=== PATIENT | female | born 1950 | race Caucasian/White ===

== ENCOUNTER → 2019-05-23 | Outpatient (CLI) | payer MEDICARE, OTHER ==
[~2019-05-23] MED LIST: ALPRAZOLAM1 MG PO; AMLODIPINE BESYL5 MG PO; ASPIR 8181 MG PO; ATORVASTATIN CA20 MG PO; FENOFIBRATE145 MG PO; GABAPENTIN300 MG PO; LISINOPRIL-HCT1 EACH PO; LOVAZA1 GM PO; NOVOLOG100 UNITS1 SC; OMEPRAZOLE40 MG PO; TOUJEO SOL300 UNIT/1 SC; TRULICITY1.5 MG/0.5 SC; ZOLOFT50 MG PO
[2019-05-23 11:54] LABS: BASOPHILS % 0.8 % (0.0-1.0); EOSINOPHILS # (AUTO) 0.1 (0.0-0.4); EOSINOPHILS % 2.7 % (0.0-6.0); HEMOGLOBIN 10.6 g/dL (12.0-16.0); LYMPHOCYTES # (AUTO) 1.3 (1.0-3.2); LYMPHOCYTES % 27.1 % (18.0-39.1); MEAN CORPUSCULAR HEMOGLOBIN 30.9 pg (28-32); MEAN CORPUSCULAR HGB CONC 32.1 g/dL (31-35); MEAN CORPUSCULAR VOLUME 96.2 fL (81-99); MONOCYTES # (AUTO) 0.4 (0.2-0.8); MONOCYTES % 7.5 % (4.4-11.3); NEUTROPHILS % 61.7 % (38.7-80.0); PLATELET COUNT 208 x10e3/uL (140-360); RED BLOOD COUNT 3.43 x10e6/uL (3.6-5.1); RED CELL DISTRIBUTION WIDTH 12.9 % (11.7-14.4)
[2019-05-23 12:12] LABS: ANION GAP 13.2 mmol/L (8-16); CALCIUM 9.8 mg/dL (8.4-10.2); CREATININE, SERUM 1.14 mg/dL (0.57-1.11); POTASSIUM 4.2 mmol/L (3.5-5.1)
--- NOTE | 2019-05-23 12:50 | Diagnostic Imaging Report ---
EXAMINATION: CHEST 2 VIEWS INDICATION: Pre-operative COMPARISON: None FINDINGS: LINES/TUBES:None LUNGS:The lungs are well-inflated. No focal consolidation or pulmonary edema. PLEURA:No pleural effusion or pneumothorax. MEDIASTINUM:The cardiomediastinal silhouette appears normal in size and shape. BONES/SOFT TISSUES:No acute osseous injury. ABDOMEN:No free air under the diaphragm. IMPRESSION: No focal pneumonia or pulmonary edema. Signed by: Teddy Stewart MD on 05/23/2019 12:47 PM
== END ==
LOC: DX 10:36 → EDSTATUS 05-26 07:00
PROVIDERS: ATTEND Plastic Surgery
DX: Z01.818 Encounter for other preprocedural examination (principal); M65.321 Trigger finger, right index finger
CPT/HCPCS: 36415; 71046; 80048; 85025; 93005

== ENCOUNTER → 2019-06-16 | Day surgery (SDC) | payer MEDICARE, OTHER ==
[~2019-06-16] MED LIST changes: +ACETAMINOPHEN/CODEINE 300MG - 30MG TAB ONE; +BUPIVACAINE HCL 0.5% INJ 30 ML VIAL INJ ONE; +CEFAZOLIN SOD 1 GM/NS 50ML 50 ML IV ONE; +FENTANYL CITRATE/PF 100MCG/2 ML INJ ONE; +LIDOCAINE HCL 2% LOCAL INJ 5 ML SDV VIAL INJ ONE; +MUPIROCIN 2% OINT 22 GM TUBE ONE; +ONDANSETRON HCL INJ 2MG/ML 2ML 2 MG/ML VIAL ONE; +PROPOFOL IV EMULSION 10 MG/ML 20 ML VIAL ONE; +SEVOFLURANE INHAL SOLN 250 ML PEN BTL ONE
--- OUTSIDE RECORDS SUMMARY | 2019-06-16 05:31 | XMS REPORT | Summary of Care ---
Author Author [facility] [[email or web address]] - Health Organization [facility] [[email or web address]] - Health Address Unknown Phone Unavailable Care Team Providers Care Bait Maker Name Role Phone Robin Garcia MD PCP Reason for Visit * Reason Comments Refill Request medication refills Encounter Details Care Team Description Date Type Department Robin Garcia MD [address] [place] [id number] Essential hypertension (Primary Dx); Anxiety; Neuropathy 09/22/2018 Office Visit [address] [phone] Allergies Comments Active Allergy Reactions Severity Noted Date Levofloxacin Unknown - See 02/02/2015 comments Hydrocodone-Acetaminophen Nausea and/or 02/02/2015 Vomiting documented as of this encounter (statuses as of 09/22/2018) Medications End Date Status Medication Sig Dispensed Refills Start Date Active aspirin 81 mg chewable Take 81 mg by 0 tablet mouth daily. Active methocarbamol 500 mg Take 500 mg 0 tablet by mouth 4 (four) times daily. Active blood sugar diagnostic Use as 300 Strip 3 (ACCU-CHEK GUIDE) directed. E 8 stripIndications: 11.9. Three Uncontrolled type 2 times daily diabetes with renal manifestation Active Lancets (ACCU-CHEK Use as 300 Each 3 FASTCLIX) directed. E 8 MiscIndications: 11.9. Three Uncontrolled type 2 times daily diabetes with renal manifestation Active Lancing Device with Use as 300 Kit 3 Lancets (ACCU-CHEK directed. 8 FASTCLIX) KitIndications: Three times Uncontrolled type 2 daily. E 11.9 diabetes with renal manifestation Active dulaglutide (TRULICITY) inject 1.5 mg 12 Syringe 4 1.5 mg/0.5 mL under the 9 PnIjIndications: skin weekly. Uncontrolled type 2 diabetes with renal manifestation Active Fenofibrate 160 mg Take 1 tablet 90 tablet 3 tabletIndications: by mouth 9 Hypertriglyceridemia every morning. Active atorvastatin 80 mg Take 1 tablet 90 tablet 4 tabletIndications: by mouth at 9 Dyslipidemia, Essential bedtime. hypertension, CKD (chronic kidney disease) stage 3, GFR 30-59 ml/min Active LOVAZA, rijgw-4-quiy Take 2 360 capsule 3 ethyl esters, 1 gram capsules by 9 capsuleIndications: mouth 2 (two) Hypertriglyceridemia times daily before breakfast and dinner. Active amLODIPine 5 mg TAKE 1 TABLET 90 tablet 4 tabletIndications: EVERY DAY 9 Essential hypertension, CKD (chronic kidney disease) stage 3, GFR 30-59 ml/min, Bilateral carotid bruits, Cardiac murmur, Vertebral artery stenosis, unspecified laterality Active omeprazole 40 mg Take 1 90 capsule 3 capsuleIndications: capsule by 9 Gastroesophageal reflux mouth daily. disease without esophagitis Active insulin aspart U-100 inject 15-30 81 mL 1 (NOVOLOG FLEXPEN U-100 Units under 9 INSULIN) 100 unit/mL the skin 3 injectionIndications: (three) times Uncontrolled type 2 daily before diabetes with renal meals. manifestation Active lisinopril-hydrochlorothi Take 1 tablet 0 azide 20-12.5 mg per by mouth tablet daily. Active insulin glargine U-300 inject 60 6 mL 2 conc (TOUJEO MAX U-300 Units under 9 SOLOSTAR) 300 unit/mL (3 the skin mL) InPn daily. Active Insulin [place], Use 5X daily. 500 Each 4 Disposable, (SANDER PEN Dx Code 9 NEEDLE) 32 gauge x 5/32" E11.49 NdleIndications: Uncontrolled type 2 diabetes with renal manifestation Active ALPRAZolam 1 mg Take 1 tablet 30 tablet 5 tabletIndications: by mouth at 9 Anxiety bedtime. Active SERTraline 100 mg TAKE 1 TABLET 90 tablet 4 tabletIndications: EVERY DAY 9 Anxiety Active gabapentin 300 mg TAKE 1 270 capsule 4 capsuleIndications: CAPSULE BY 9 Neuropathy MOUTH LEGS THREE TIMES DAILY NEEDED FOR PAIN 09/22/2018 Discontinued ALPRAZolam 1 mg Take 1 tablet 30 tablet 5 tabletIndications: by mouth at 9 Anxiety bedtime. 09/22/2018 Discontinued SERTraline 100 mg TAKE 1 TABLET 90 tablet 4 tabletIndications: EVERY DAY 9 Anxiety 09/22/2018 Discontinued GABAPENTIN 300 mg TAKE 1 90 capsule 0 capsuleIndications: CAPSULE BY 9 Neuropathy MOUTH LEGS THREE TIMES DAILY NEEDED FOR PAIN documented as of this encounter (statuses as of 09/22/2018) Active Problems Problem Noted Date Well woman exam 01/28/2018 Adrenal benign tumor, right 12/15/2016 Vertebral artery stenosis 04/25/2016 S/P arterial stent 04/25/2016 Overview: Right vertebral artery for 80% stenosis (04/25/16) Syncope 04/24/2016 Obesity (BMI 30-39.9) 04/22/2016 Dizziness 04/22/2016 Syncope, unspecified syncope type 03/24/2016 Bradycardia 03/24/2016 Cardiac murmur 03/24/2016 Allergic rhinitis due to pollen 08/14/2015 Gastroesophageal reflux disease without esophagitis 02/05/2015 Uncontrolled type 2 diabetes with renal manifestation 12/13/2014 Bilateral carotid bruits 12/13/2014 Hypertriglyceridemia 11/07/2014 CKD (chronic kidney disease) stage 3, GFR 30-59 ml/min 11/07/2014 B12 deficiency 11/07/2014 Essential hypertension 11/03/2014 Central obesity 11/03/2014 Muscle weakness (generalized) 11/03/2014 documented as of this encounter (statuses as of 09/22/2018) Resolved Problems Problem Noted Date Resolved Date Vitamin D deficiency 11/07/2014 06/20/2015 Diabetes mellitus type 2, uncontrolled, without complications 11/03/2014 12/13/2014 Overview: ICD10 Diagnosis Term 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 documented as of this encounter Last Filed Vital Signs Reading Time Taken Comments Vital Sign 154/71 09/22/2018 8:21 AM CDT Blood Pressure 89 09/22/2018 8:21 AM CDT Pulse 36.4 C (97.6 F) 09/22/2018 8:21 AM CDT Temperature 16 09/22/2018 8:21 AM CDT Respiratory Rate - - Oxygen Saturation - - Inhaled Oxygen Concentration 85.7 kg (189 lb) 09/22/2018 8:21 AM CDT Weight 160 cm (5' 3") 09/22/2018 8:21 AM CDT Height 33.48 09/22/2018 8:21 AM CDT Body Mass Index documented in this encounter Progress Notes * Robin Garcia MD - 09/22/2018 8:30 AM CDT CC: follow up hypertension and refills Mary is a 68 year old female Hypertension Chronicity: Chronic Notable CLINICAL QUALITY MANAGER blood pressures: Usually < 140/90 Context: normal sodium, not caffeine, not drug abuse, not herbal remedies, not m edication change, not noncompliance, not OTC medications used and not stress Relieved by: Diuretics, ROCIO inhibitors and Ca channel blockers Associated symptoms: no chest pain, no palpitations, no peripheral edema and no shortness of breath Risk factors: no tobacco use Allergies Allergen Reactions Levaquin [Levofloxacin] Unknown - See comments Lortab [Hydrocodone-Acetaminophen] Nausea and/or Vomiting Current Outpatient Medications Medication Sig Dispense Refill Insulin [place], Disposable, (SANDER PEN NEEDLE) 32 gauge x 5/32" Ndle Use 5X daily. Dx Code E11.49 500 Each 4 insulin glargine U-300 conc (TOUJEO MAX U-300 SOLOSTAR) 300 unit/mL (3 mL) I nPn inject 60 Units under the skin daily. 6 mL 2 GABAPENTIN 300 mg capsule TAKE 1 CAPSULE BY MOUTH LEGS THREE TIMES DAILY NEEDED FOR PAIN 90 capsule 0 lisinopril-hydrochlorothiazide 20-12.5 mg per tablet Take 1 tablet by mouth daily. insulin aspart U-100 (NOVOLOG FLEXPEN U-100 INSULIN) 100 unit/mL injection i nject 15-30 Units under the skin 3 (three) times daily before meals. 81 mL 1 ALPRAZolam 1 mg tablet Take 1 tablet by mouth at bedtime. 30 tablet 5 amLODIPine 5 mg tablet TAKE 1 TABLET EVERY DAY 90 tablet 4 atorvastatin 80 mg tablet Take 1 tablet by mouth at bedtime. 90 tablet 4 dulaglutide (TRULICITY) 1.5 mg/0.5 mL PnIj inject 1.5 mg under the skin week ly. 12 Syringe 4 Fenofibrate 160 mg tablet Take 1 tablet by mouth every morning. 90 tablet 3 LOVAZA, ptzlb-1-pmce ethyl esters, 1 gram capsule Take 2 capsules by mouth 2 (two) times daily before breakfast and dinner. 360 capsule 3 omeprazole 40 mg capsule Take 1 capsule by mouth daily. 90 capsule 3 SERTraline 100 mg tablet TAKE 1 TABLET EVERY DAY 90 tablet 4 blood sugar diagnostic (ACCU-CHEK GUIDE) strip Use as directed. E 11.9. Thre e times daily 300 Strip 3 Lancets (ACCU-CHEK FASTCLIX) Misc Use as directed. E 11.9. Three times daily 300 Each 3 Lancing Device with Lancets (ACCU-CHEK FASTCLIX) Kit Use as directed. Three times daily. E 11.9 300 Kit 3 methocarbamol 500 mg tablet Take 500 mg by mouth 4 (four) times daily. aspirin 81 mg chewable tablet Take 81 mg by mouth daily. No current facility-administered medications for this visit. Past Medical History: Diagnosis Date Allergic rhinitis Depression DM2 (diabetes mellitus, type 2) Dry eye Esophageal reflux HLD (hyperlipidemia) HTN (hypertension) Past Surgical History: Procedure Laterality Date APPENDECTOMY HB PERQ STENT/CHEST VERT ART 04/26/2016 HYSTERECTOMY complete age 54 REMOVAL GALLBLADDER Social History Socioeconomic History Marital status: Spouse name: Not on file Number of children: Not on file Years of education: Not on file Highest education level: Not on file Occupational History Not on file Social Needs Financial resource strain: Not on file Food insecurity: Worry: Not on file Inability: Not on file Transportation needs: Medical: Not on file Non-medical: Not on file Tobacco Use Smoking status: Never Smoker Smokeless tobacco: Never Used Substance and Sexual Activity Alcohol use: No Alcohol/week: 0.0 oz Drug use: No Sexual activity: Yes Partners: Male control/protection: Surgical Lifestyle Physical activity: Days per week: Not on file Minutes per session: Not on file Stress: Not on file Relationships Social connections: Talks on phone: Not on file Gets together: Not on file Attends church service: Not on file Active member of club or organization: Not on file Attends meetings of clubs or organizations: Not on file Relationship status: Not on file Intimate partner violence: Fear of current or ex partner: Not on file Emotionally abused: Not on file Physically abused: Not on file Forced sexual activity: Not on file Other Topics Concern Not on file Social History Narrative Retired in July 2014 Lives with . Family History Problem Relation Age of Onset Diabetes Mother Diabetes Father Heart Brother Review of Systems Respiratory: Negative for shortness of breath. Cardiovascular: Negative for chest pain and palpitations. with stage 4 renal cancer BP (!) 154/71 (BP Location: Left arm, Patient Position: Sitting, BP CUFF SIZE: A dult Medium) | Pulse 89 | Temp 36.4 C (97.6 F) (Tympanic) | Resp 16 | Ht 5' 3" (1.6 m) | Wt 189 lb (85.7 kg) | BMI 33.48 kg/m Physical Exam Constitutional: She is oriented to person, place, and time. She appears well-dev eloped and well-nourished. HENT: Head: Normocephalic and atraumatic. Eyes: Pupils are equal, round, and reactive to light. Conjunctivae are normal. Neck: Normal range of motion. Neck supple. No JVD present. No tracheal deviation present. No thyromegaly present. Cardiovascular: Normal rate, regular rhythm, normal heart sounds and intact dist al pulses. Exam reveals no gallop and no friction rub. No murmur heard. Pulmonary/Chest: Effort normal and breath sounds normal. No respiratory distress . She has no wheezes. She has no rales. She exhibits no tenderness. Abdominal: Soft. Bowel sounds are normal. She exhibits no distension and no mass . There is no tenderness. There is no rebound and no guarding. Musculoskeletal: Normal range of motion. She exhibits no edema or tenderness. Lymphadenopathy: She has no cervical adenopathy. Neurological: She is alert and oriented to person, place, and time. Skin: Skin is warm and dry. Sensory exam of the foot is normal. Monofilament exam with sensation Right: 5/5, Left: 5/5. Lesions absent Ulcers Absent Peripheral pulses present 2+. Diagnosis: 1. Essential hypertension 2. Anxiety ALPRAZolam 1 mg tablet SERTraline 100 mg tablet 3. Neuropathy gabapentin 300 mg capsule Follow up: 6 months Patient Care Team: Robin Garcia MD as PCP - General ([facility]-FAMILY MEDICINE) Plan of care, desired health behaviors, goals,& medication discussed with patient. Education resources & self management tools provided and reviewed with AVS. Patient/guardian/family verbalized understanding & agrees to plan of care. Barriers to care: None Ability to manage care: Good documented in this encounter Plan of Treatment Care Team Description Date Type Specialty Lucas Vieira MD [address] [place] [address] [phone] 01/04/2019 Office Visit Endocrinology Diabetes & Metabolism Relga Seo PA-C [address] [place] [phone] 01/28/2019 Office Visit Obstetrics & Gynecology Edilberto Davila MD [address] [phone] 07/28/2019 Office Visit Cardiology Health Maintenance Due Date Last Done Comments HEPATITIS C (HCV) SCREEN 1950 EYE EXAM 08/08/1959 COLONOSCOPY 08/08/1999 Zoster Recombinant 08/08/1999 Vaccine (SHINGRIX) (1 of 2) Medicare Wellness Visit 2014 Osteoporosis Screening 2014 PNEUMOCOCCAL VACCINES 65+ 2014 (1 of 2 - PCV13) DTaP,Tdap,and Td Vaccines 06/05/2016 06/04/2016 (1 - Tdap) INFLUENZA VACCINE 10/24/2018 MAMMOGRAM 02/02/2019 02/02/2018 HgA1C 03/04/2019 09/01/2018, 06/07/2018, 03/09/2018, Additional history exists FOOT EXAM 06/08/2019 06/07/2018, 06/07/2018, 03/09/2018, Additional history exists CREATININE (SERUM) 09/02/2019 09/01/2018, 07/13/2017, 06/22/2017, Additional history exists LDL-C 09/02/2019 09/01/2018, 03/09/2018, 05/05/2017, Additional history exists URINE MICROALBUMIN 09/02/2019 09/01/2018, 11/04/2014 documented as of this encounter Results Not on filedocumented in this encounter Visit Diagnoses Diagnosis Essential hypertension - Primary Unspecified essential hypertension Anxiety Anxiety state, unspecified Neuropathy Mononeuritis of unspecified site documented in this encounter Insurance Type Payer Benefit Subscriber ID Effective Phone Address Plan / Dates Group Medicare MEDICARE MEDICARE xxxxxxxxxxx 2014-P [phone] [place] [id number] [place] [phone] Medicare Supplement [employer] [place] [id number] 2014-P [place] beltran documented as of this encounter
--- OUTSIDE RECORDS SUMMARY | 2019-06-16 05:31 | XMS REPORT ---
Author Author [facility] Address Unknown Phone Unavailable Care Team Providers Care Supply Chain Development Manager Name Role Phone KAREL REYES Unavailable Unavailable Demetria, Ephraim Unavailable Unavailable Joie, Ignacio Unavailable Unavailable Problems This patient has no known problems. Allergies, Adverse Reactions, Alerts This patient has no known allergies or adverse reactions. Medications This patient has no known medications. Results Test Description Test Time Test Comments Text Results Atomic Results Result Comments CHEST 2 VIEWS 2019-05-23 12:44:00 [place] [address] Patient Name: HORACIO LION MR #: [id number] : 1950 Age/Sex: 68/F Req #: [id number] Adm Physician: Ordered by: KAREL REYES MD Report #: [id number] Location: OR Room/Bed: Procedure: [id number] DX/CHEST 2 VIEWS Exam Date: 05/23/19 Exam Time: 1216 REPORT STATUS: Signed EXAMINATION: CHEST 2 VIEWS INDICATION: Pre-operative COMPARISON: None FINDINGS: LINES/TUBES:None LUNGS:The lungs are well-inflated. No focal consolidation or pulmonary edema. PLEURA:No pleural effusion or pneumothorax. MEDIASTINUM:The cardiomediastinal silhouette appears normal in size and shape. BONES/SOFT TISSUES:No acute osseous injury. ABDOMEN:No free air under the diaphragm. IMPRESSION: No focal pneumonia or pulmonary edema. Signed by: Lisa Staples MD on 05/23/2019 12:47 PM Dictated By: LISA STAPLES MD 46 Transcribed By: REX MURRAY on 05/23/191246 COPY TO: KAREL REYES MD Anaerobic culture 2016-07-06 09:48:00 Primary Language Turkmen Physician Instructions potato picker in [facility] NO ANAEROBES GROWN.^NO ANAEROBES GROWN.^L Gram stain 2016-07-06 09:48:00 NO ORGANISMS SEEN (test code=NO ORGAN) . NO WBCS SEEN (test code=NO WBCS) . Primary Language Turkmen Physician [facility]ructions [facility] [id number] 10:31:00* Test Item Value Reference Range Comments Bacterial culture w ID (test fveo=3498-0) MIXED NELLY. Bacterial culture w ID (test yrhv=7046-94) Bacterial culture w ID (test zjfk=2600-43) 3+ GRAM NEGATIVE RODS. Bacterial culture w ID (test utnv=2820-45) PROTEUS MIRABILIS Bacterial culture w ID (test emre=6618-00) Bacterial culture w ID (test veey=8145-97) 1+STAPH-COAGULASE POSITIVE Bacterial culture w ID (test wzzz=0040-14) STAPH AUREUS Bacterial culture w ID (test uamb=4058-1) Proteus mirabilis Trimethoprim/sulfamethoxazole susceptibility test by minimum inhibitory concentration (test qbmo=558-3) Tetracycline susceptibility test by minimum inhibitory concentration (test taie=829-1) Amoxicillin/clavulanate susceptibility test by minimum inhibitory concentration (test code=20-8) Gentamycin susceptibility test by minimum inhibitory concentration (test rrkq=752-9) Ampicillin susceptibility test by minimum inhibitory concentration (test code=28-1) Cefazolin susceptibility test by minimum inhibitory concentration (test code=76-0) Cefoxitin susceptibility test by minimum inhibitory concentration (test nald=401-7) Cefotaxime susceptibility test by minimum inhibitory concentration (test umjq=338-6) Cefuroxime susceptibility test by minimum inhibitory concentration (test hiay=19925-8) Cefotetan susceptibility test by minimum inhibitory concentration (test hvjy=330-0) Levofloxacin susceptibility test by minimum inhibitory concentration (test ycip=00881-1) Ceftriaxone susceptibility test by minimum inhibitory concentration (test ixdl=365-9) Ampicillin/sulbactam susceptibility test by minimum inhibitory concentration (test code=32-3) Aztreonam susceptibility test by minimum inhibitory concentration (test code=44-8) Ceftazidime susceptibility test by minimum inhibitory concentration (test zzgz=398-4) Ticarcillin/clavulanate susceptibility test by minimum inhibitory concentration (test gsez=573-9) Tobramycin susceptibility test by minimum inhibitory concentration (test vzcd=066-1) Piperacillin/tazobactam susceptibility test by minimum inhibitory concentration (test blps=965-7) Cefepime susceptibility test by minimum inhibitory concentration (test vrts=2458-9) Ciprofloxacin susceptibility test by minimum inhibitory concentration (test ibwz=659-7) Meropenem susc MAURIZIO (test qvab=6403-3) Amikacin susceptibility test by minimum inhibitory concentration (test code=12-5) Bacterial culture w ID (test vven=1926-3) Staphylococcus aureus Trimethoprim/sulfamethoxazole susceptibility test by minimum inhibitory concentration (test qotj=923-5) Tetracycline susceptibility test by minimum inhibitory concentration (test qget=163-5) Rifampin susceptibility test by minimum inhibitory concentration (test oyfp=613-9) Cefazolin susceptibility test by minimum inhibitory concentration (test code=76-0) Penicillin susceptibility test by minimum inhibitory concentration (test wlym=4272-2) Vancomycin susceptibility test by minimum inhibitory concentration (test jnfl=517-7) Levofloxacin susceptibility test by minimum inhibitory concentration (test knhv=25058-9) Ampicillin/sulbactam susceptibility test by minimum inhibitory concentration (test code=32-3) Erythromycin susceptibility test by minimum inhibitory concentration (test ogdq=724-7) Oxacillin susceptibility test by minimum inhibitory concentration (test bhkq=862-0) Ampicillin susceptibility test by minimum inhibitory concentration (test code=28-1) Clindamycin susceptibility test by minimum inhibitory concentration (test ieed=232-3) Ciprofloxacin susceptibility test by minimum inhibitory concentration (test tuiu=545-4) Amoxicillin/clavulanate susc MAURIZIO (test code=20-8) Primary Language Turkmen Physician [facility]ructions [facility] 2016-06-29 08:40:00Primary Language EnglishNO ANAEROBES GROWN.^NO ANAEROBES GROWN.^LGram [id number] 08:40:00* Test Item Value Reference Range Comments G POS COCCI IN PRS or CHS (test code=GRAM POS1) 1+ NO WBCS SEEN (test code=NO WBCS) . Primary Language EnglishBacterial culture w [id number] 10:08:00* Test Item Value Reference Range Comments Bacterial culture w ID (test opdu=9051-6) 4+ STAPH-COAGULASE POSITIVE Bacterial culture w ID (test tgvd=9165-72) STAPH AUREUS Bacterial culture w ID (test qeai=9900-5) Staphylococcus aureus Trimethoprim/sulfamethoxazole susceptibility test by minimum inhibitory concentration (test ltej=643-5) Tetracycline susceptibility test by minimum inhibitory concentration (test bdap=369-9) Rifampin susceptibility test by minimum inhibitory concentration (test fwcd=178-2) Cefazolin susceptibility test by minimum inhibitory concentration (test code=76-0) Penicillin susceptibility test by minimum inhibitory concentration (test gnfa=5773-3) Vancomycin susceptibility test by minimum inhibitory concentration (test yxpd=546-8) Levofloxacin susceptibility test by minimum inhibitory concentration (test tpxp=77429-7) Ampicillin/sulbactam susceptibility test by minimum inhibitory concentration (test code=32-3) Erythromycin susceptibility test by minimum inhibitory concentration (test hzvd=704-9) Oxacillin susceptibility test by minimum inhibitory concentration (test xpam=885-9) Ampicillin susceptibility test by minimum inhibitory concentration (test code=28-1) Ciprofloxacin susceptibility test by minimum inhibitory concentration (test egbz=671-4) Amoxicillin/clavulanate susc MAURIZIO (test code=20-8) Primary Language EnglishGlucose blood [id number] 10:34:00* Test Item Value Reference Range Comments Glucose blood fingerstick (test ryrc=[id number]) 140 mg/dL 65-120 Tib Fib [place]CH[facility] [place] [address] Name: HORACIO LION Phys: Ephraim Augustin MD : 1950 Age: 66 Sex:F Acct: [id number] Loc: [facility] Exam Date: 11/04/16 Status: REG RCR Radiology Number: Unit Number: [id number] EXAM DESCRIPTION: RAD - Tib Fib Right - 11/04/2016 2:14 pm CLINICAL HISTORY: Right leg pain and swelling FINDINGS: No fracture is seen. No bony destructive lesion is seen. A radiopaque foreign body is not displayed Signed By: Dev Goodman MD Signed AT: 11/04/16 8625
--- OUTSIDE RECORDS SUMMARY | 2019-06-16 05:32 | XMS REPORT | Summary of Care ---
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 Role Phone Robin Garcia MD PCP Reason for Visit * Reason Comments Refill Request Encounter Details Care Team Description Date Type Department Lucas Vieira MD [address] [place] [address] [phone] Refill Request 04/15/2019 Refill [facility] Endocrinology- [place] Professional Office [address] [place] [address] Allergies Comments Active Allergy Reactions Severity Noted Date Levofloxacin Unknown - See 02/02/2015 comments Hydrocodone-Acetaminophen Nausea and/or 02/02/2015 Vomiting documented as of this encounter (statuses as of 04/15/2019) Medications End Date Status Medication Sig Dispensed Refills Start Date Active aspirin 81 mg chewable Take 81 mg by 0 tablet mouth daily. Active methocarbamol 500 mg Take 500 mg 0 tablet by mouth 4 (four) times daily. Active Lancets (ACCU-CHEK Use as 300 Each 3 FASTCLIX) directed. E 8 MiscIndications: 11.9. Three Uncontrolled type 2 times daily diabetes with renal manifestation Active Lancing Device with Use as 300 Kit 3 Lancets (ACCU-CHEK directed. 8 FASTCLIX) KitIndications: Three times Uncontrolled type 2 daily. E 11.9 diabetes with renal manifestation Active Fenofibrate 160 mg Take 1 tablet 90 tablet 3 tabletIndications: by mouth 9 Hypertriglyceridemia every morning. Active atorvastatin 80 mg Take 1 tablet 90 tablet 4 tabletIndications: by mouth at 9 Dyslipidemia, Essential bedtime. hypertension, CKD (chronic kidney disease) stage 3, GFR 30-59 ml/min Active LOVAZA, mbdlx-5-yvdk Take 2 360 capsule 3 ethyl esters, [...] reflux mouth daily. disease without esophagitis Active Insulin [place], Use 5X daily. 500 Each 4 Disposable, (SANDER PEN Dx Code 9 NEEDLE) 32 gauge x 32" E11.49 NdleIndications: Uncontrolled type 2 diabetes with renal manifestation Active SERTraline 100 mg TAKE 1 TABLET 90 tablet 4 tabletIndications: EVERY DAY 9 Anxiety Active gabapentin 300 mg TAKE 1 270 capsule 4 capsuleIndications: CAPSULE BY 9 Neuropathy MOUTH LEGS THREE TIMES DAILY NEEDED FOR PAIN Active lisinopril-hydrochlorothi Take 1 tablet 30 tablet 1 azide 20-12.5 mg per by mouth 9 tablet daily. Active ONETOUCH VERIO USE THREE 300 Strip 1 stripIndications: TIMES DAILY 9 Uncontrolled type 2 DIRECTED. diabetes with renal DX:E11.29 manifestation Active insulin aspart U-100 inject 15-26 72 mL 1 (NOVOLOG FLEXPEN U-100 Units under 9 INSULIN) 100 unit/mL (3 the skin 3 mL) injectionIndications: (three) times Uncontrolled type 2 daily before diabetes with renal meals. Max manifestation daily units 79. Active insulin glargine U-300 inject 60 6 mL 2 conc (TOUJEO MAX U-300 Units under 9 SOLOSTAR) 300 unit/mL (3 the skin mL) InPn daily. Active ALPRAZolam 1 mg Take 1 tablet 40 tablet 5 tabletIndications: by mouth 2 0 Anxiety (two) times daily as needed (anxiety). Active TRULICITY 1.5 mg/0.5 mL INJECT ONE 4 mL 0 PnIjIndications: DOSE UNDER 0 Uncontrolled type 2 THE SKIN diabetes with renal WEEKLY manifestation Active SYBIL THOMSONOSTAR U-300 INJECT 60 6 mL 0 INSULIN 300 unit/mL (1.5 UNITS 0 mL) InPn SUBCUTANEOUSL Y ONCE DAILY documented as of this encounter (statuses as of 04/15/2019) Active Problems Problem Noted Date Well woman [...] as of this encounter (statuses as of 04/15/2019) Resolved Problems Problem Noted Date Resolved Date Vitamin D deficiency 11/07/2014 06/20/2015 Diabetes mellitus type 2, uncontrolled, without complications 11/03/2014 12/13/2014 Overview: ICD10 Diagnosis Term Tax Processor Utility HLD (hyperlipidemia) 11/03/2014 12/26/2015 documented as of this encounter (statuses as of 04/15/2019) Immunizations Name Administration Dates Next Due Td [...] of this encounter Last Filed Vital Signs Not on filedocumented in this encounter Plan of Treatment Care Team Description Date Type Specialty Vieira, [place], MD [address] [place] [address] [phone] 05/11/2019 Office Visit Endocrinology Diabetes & Metabolism Edilberto Davila MD [address] [place] [phone] 07/28/2019 Office Visit Cardiology Health Maintenance Due Date Last Done Comments HEPATITIS C (HCV) SCREEN 1950 DTaP,Tdap,and Td Vaccines 1960 06/04/2016 (1 - Tdap) COLONOSCOPY 08/08/1999 Zoster Recombinant 08/08/1999 Vaccine (SHINGRIX) (1 of 2) Medicare Wellness Visit 2014 Osteoporosis Screening 2014 Breast Cancer Screening 02/02/2019 02/02/2018 (MAMMOGRAM) HgA1C 07/05/2019 01/04/2019, 09/01/2018, 06/07/2018, Additional history exists LDL-C 09/02/2019 09/01/2018, 03/09/2018, 05/05/2017, Additional history exists URINE MICROALBUMIN 09/02/2019 09/01/2018, 11/04/2014 EYE EXAM 09/16/2019 09/15/2018 FOOT EXAM 09/23/2019 09/22/2018, 09/22/2018, 06/07/2018, Additional history exists CREATININE (SERUM) 11/14/2019 11/13/2018, 09/01/2018, 07/13/2017, Additional history exists INFLUENZA VACCINE (#1) 2019 Postponed from 10/24/2018 (Alternative Guidelines) PNEUMOCOCCAL VACCINES 65+ 12/21/2019 Postponed from 2014 (1 of 2 - PCV13) (Alternative Guidelines) documented as of this encounter Results Not on filedocumented in this encounter Insurance Type Payer Benefit Subscriber ID Effective Phone Address Plan / Dates Group Medicare MEDICARE MEDICARE xxxxxxxxxxx 2014-P [phone] resent [id number] [place] [id number] Medicare Supplement [place] [id number] 2014-Elian beltran documented as of this encounter
--- OUTSIDE RECORDS SUMMARY | 2019-06-16 05:32 | XMS REPORT | Summary of Care ---
Author Author [facility] - Health Organization [facility] - Health Address Unknown Phone Unavailable Care Team Providers Care Sheet Sorter Name Role Phone Robin Garcia MD PCP Reason for Visit * Reason Comments Refill Request medication refills Encounter Details Care Team Description Date Type Department Robin Garcia MD [address] [place] [phone] Essential hypertension (Primary Dx); Anxiety; Neuropathy 09/22/2018 Office Visit [address] [phone] Allergies Comments Active Allergy [...] stage 3, GFR 30-59 ml/min Active LOVAZA, lyzxg-4-jbri Take 2 360 capsule 3 ethyl esters, [...] the skin mL) InPn daily. Active Insulin [place], Use 5X daily. 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 90 tablet 3 LOVAZA, dsvlc-6-oino ethyl esters, 1 gram capsule Take 2 [...] file Gets together: Not on file Attends adventist service: Not on file Active member of [...] Description Date Type Specialty Lucas Vieira MD [address] [place] [address] [phone] 01/04/2019 Office Visit Endocrinology Diabetes & Metabolism Regla Seo PA-C [address] [place] [phone] 01/28/2019 Office Visit Obstetrics & Gynecology Robin Garcia MD [address] [place] [phone] 03/25/2019 Office Visit Family Medicine Edilberto Davila MD [address] [place] [phone] 07/28/2019 Office Visit Cardiology Health Maintenance Due [...] Dates Group Medicare MEDICARE MEDICARE xxxxxxxxxxx 2014-P [phone] resent [id number] [place] [id number] Medicare Supplement [place] [id number] 2014-P [place] beltran documented as of this encounter
--- OUTSIDE RECORDS SUMMARY | 2019-06-16 05:32 | XMS REPORT | Summary of Care ---
Author Author [facility] - Health Organization [facility] - Health Address Unknown Phone Unavailable Care Team Providers Care Youth Director Name Role Phone Robin Garcia MD PCP Reason for Visit * Reason Comments Refill Request Encounter Details Care Team Description Date Type Department Robin Garcia MD [address] [place] [phone] Refill Request 04/15/[address] [phone] Allergies Comments Active Allergy Reactions [...] stage 3, GFR 30-59 ml/min Active LOVAZA, tcxdc-1-zknb Take 2 360 capsule 3 ethyl esters, [...] mouth daily. disease without esophagitis Active Insulin [place], Use 5X daily. 500 Each 4 Disposable, [...] THE SKIN diabetes with renal WEEKLY manifestation 04/15/2019 Discontinued dulaglutide (TRULICITY) inject 1.5 mg 12 Syringe 4 1.5 mg/0.5 mL under the 9 PnIjIndications: skin weekly. 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 Utility HLD (hyperlipidemia) 11/03/2014 12/26/2015 documented as [...] Description Date Type Specialty Lucas Vieira MD [address] [place] [address] [phone] 05/11/2019 Office Visit Endocrinology Diabetes & Metabolism Edilberto Davila MD [address] [place] [address] 07/28/2019 Office Visit Cardiology Health Maintenance [...] filedocumented in this encounter Visit Diagnoses Diagnosis Uncontrolled type 2 diabetes with renal manifestation Type II or unspecified type diabetes mellitus with renal manifestations, uncontrolled documented in this encounter Insurance Type Payer Benefit Subscriber ID Effective Phone Address Plan / Dates Group Medicare MEDICARE MEDICARE xxxxxxxxxxx 2014-P [phone] [address] resent [id number] [place] [id number] Medicare Supplement [place] [id number] 2014-P [place] beltran documented as of this encounter
--- OUTSIDE RECORDS SUMMARY | 2019-06-16 05:32 | XMS REPORT | Summary of Care ---
Author Author [facility] - Health Organization [facility] - Health Address Unknown Phone Unavailable Care Team Providers Care Log Buyer Name Role Phone Robin Garcia MD PCP Reason for Visit * Reason Comments Refill Request medication refills Encounter Details Care Team Description Date Type Department Robin Garcia MD [address] [place] [phone] Essential hypertension (Primary Dx); Anxiety; Neuropathy 09/22/2018 Office Visit [address] [phone] Allergies Comments Active Allergy Reactions [...] stage 3, GFR 30-59 ml/min Active LOVAZA, fszuu-9-pgiy Take 2 360 capsule 3 ethyl esters, [...] the skin mL) InPn daily. Active Insulin [place], Use 5X daily. 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 90 tablet 3 LOVAZA, cxeke-6-gcvk ethyl esters, 1 gram capsule Take 2 [...] file Gets together: Not on file Attends mormon service: Not on file Active member of [...] Description Date Type Specialty Lucas Vieira MD [address] [place] [address] [phone] 01/04/2019 Office Visit Endocrinology Diabetes & Metabolism Regla Seo PA-C [address] [place] [phone] 01/28/2019 Office Visit Obstetrics & Gynecology Edilberto Davila MD [address] [phone] 07/28/2019 Office Visit Cardiology Health Maintenance Due [...] Dates Group Medicare MEDICARE MEDICARE xxxxxxxxxxx 2014-P [phone] [address] resent [id number] [place] [id number] Medicare Supplement [place] [id number] 2014-P [place] beltran documented as of this encounter
--- OUTSIDE RECORDS SUMMARY | 2019-06-16 05:32 | XMS REPORT | Summary of Care ---
Author Author [facility] - Health Organization [facility] - Health Address Unknown Phone Unavailable Care Team Providers Care Street Openings Inspector Name Role Phone Robin Garcia MD PCP Encounter Details Care Team Description Date Type Department Lucas Vieira MD [address] [place] [address] [phone] 09/08/2018 Patient Secure [facility] Endocrinology- [place] Professional Office [address] [place] [address] Allergies Comments Active Allergy Reactions Severity Noted Date Levofloxacin Unknown - See 02/02/2015 comments Hydrocodone-Acetaminophen Nausea and/or 02/02/2015 Vomiting documented as of this encounter (statuses as of 10/09/2018) Medications End Date Status Medication Sig Dispensed [...] stage 3, GFR 30-59 ml/min Active LOVAZA, rwslk-9-nbax Take 2 360 capsule 3 ethyl esters, [...] the skin mL) InPn daily. Active Insulin [place], Use 5X daily. 500 Each 4 Disposable, (SANDER PEN Dx Code 9 NEEDLE) 32 gauge x 5/32" E11.49 NdleIndications: Uncontrolled type 2 diabetes with renal manifestation documented as of this encounter (statuses as of 10/09/2018) Active Problems Problem Noted Date Well woman exam 01/28/2018 Adrenal benign tumor, right 12/15/2016 Vertebral artery stenosis 04/25/2016 S/P arterial stent 04/25/2016 Overview: Right vertebral artery for 80% stenosis (3/3/17) Syncope 04/24/2016 Obesity (BMI 30-39.9) 04/22/2016 Dizziness [...] as of this encounter (statuses as of 10/09/2018) Resolved Problems Problem Noted Date Resolved Date Vitamin D deficiency 11/07/2014 06/20/2015 Diabetes mellitus type 2, uncontrolled, without complications 11/03/2014 12/13/2014 Overview: ICD10 Diagnosis 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 HLD (hyperlipidemia) 11/03/2014 12/26/2015 documented as of this encounter (statuses as of 10/09/2018) Immunizations Name Administration Dates Next Due Td [...] Description Date Type Specialty Lucas Vieira MD [address] [place] [address] [phone] 01/04/2019 Office Visit Endocrinology Diabetes & Metabolism Regla Seo PA-C [address] [place] [address] Drive [facility] [address] [place] [address] 01/28/2019 Office Visit Obstetrics & Gynecology Robin Garcia MD [address] [place] [address] [place] [phone] 03/25/2019 Office Visit Family Medicine Edilberto Davila MD [address] [place] [phone] 07/28/2019 Office Visit Cardiology Health Maintenance Due Date Last Done Comments HEPATITIS C (HCV) SCREEN 1950 EYE EXAM 08/08/1959 COLONOSCOPY 08/08/1999 Zoster Recombinant 08/08/1999 Vaccine (SHINGRIX) (1 of 2) Medicare Wellness Visit 2014 Osteoporosis Screening 2014 PNEUMOCOCCAL VACCINES 65+ 2014 (1 of 2 - PCV13) DTaP,Tdap,and Td Vaccines 06/05/2016 06/04/2016 (1 - Tdap) INFLUENZA VACCINE (#1) 2018 MAMMOGRAM 02/02/2019 02/02/2018 HgA1C 03/04/2019 09/01/2018, 06/07/2018, 03/09/2018, Additional history exists CREATININE (SERUM) 09/02/2019 09/01/2018, 07/13/2017, 06/22/2017, Additional history exists LDL-C 09/02/2019 09/01/2018, 03/09/2018, 05/05/2017, Additional history exists URINE MICROALBUMIN 09/02/2019 09/01/2018, 11/04/2014 FOOT EXAM 09/23/2019 09/22/2018, 09/22/2018, 06/07/2018, Additional history exists documented as of this encounter Results Not on filedocumented in this encounter Insurance Type Payer Benefit Subscriber ID Effective Phone Address Plan / Dates Group Medicare MEDICARE MEDICARE xxxxxxxxxxx 2014-P [phone] [address] B resent [id number] [place] [id number] Medicare Supplement [place] [id number] 2014-P [place] resent documented as of this encounter
--- OUTSIDE RECORDS SUMMARY | 2019-06-16 05:32 | XMS REPORT | Summary of Care ---
Author Author [facility] - Health Organization [facility] - Health Address Unknown Phone Unavailable Care Team Providers Care Hand Bender Name Role Phone Robin Garcia MD PCP Reason for Visit * Reason Comments Refill Request medication refills Encounter Details Care Team Description Date Type Department Robni Garcia MD [address] [place] [phone] Essential hypertension (Primary Dx); Anxiety; Neuropathy 09/22/2018 Office Visit [address] [phone] Allergies Comments Active Allergy Reactions [...] stage 3, GFR 30-59 ml/min Active LOVAZA, risvo-3-giby Take 2 360 capsule 3 ethyl esters, [...] the skin mL) InPn daily. Active Insulin [place], Use 5X daily. 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 90 tablet 3 LOVAZA, hwiai-7-supc ethyl esters, 1 gram capsule Take 2 [...] file Gets together: Not on file Attends faith service: Not on file Active member of [...] Date Type Specialty Lucas Vieira MD [address] [place] [address] [phone] 01/04/2019 Office Visit Endocrinology Diabetes & Metabolism Regla Seo PA-C [address] [place] [phone] 01/28/2019 Office Visit Obstetrics & Gynecology Robin Garcia MD [address] [place] [phone] 03/25/2019 Office Visit Family Medicine Edilberto Davila MD [address] [place] [phone] 07/28/2019 Office Visit Cardiology Health Maintenance [...] Dates Group Medicare MEDICARE MEDICARE xxxxxxxxxxx 2014-P [phone] [address] resent [id number] [place] [phone] Medicare Supplement [place] [id number] 2014-P [place] beltran documented as of this encounter
--- OUTSIDE RECORDS SUMMARY | 2019-06-16 05:32 | XMS REPORT | Summary of Care ---
Author Author [facility] - Health Organization [facility] - Health Address Unknown Phone Unavailable Care Team Providers Care Musical Engineer Name Role Phone Robin Garcia MD PCP Reason for Visit * Reason Comments Refill Request Encounter Details Care Team Description Date Type Department Edilberto Davila MD [address] [phone] Refill Request 10/06/2018 Telephone [facility] Cardiology- [address] [phone] Allergies Comments Active Allergy Reactions Severity Noted Date Levofloxacin Unknown - See 02/02/2015 comments Hydrocodone-Acetaminophen Nausea and/or 02/02/2015 Vomiting documented as of this encounter (statuses as of 10/11/2018) Medications End Date Status Medication Sig Dispensed [...] stage 3, GFR 30-59 ml/min Active LOVAZA, fpqcv-1-tiza Take 2 360 capsule 3 ethyl esters, [...] before diabetes with renal meals. manifestation Active insulin glargine U-300 inject 60 6 mL 2 conc (TOUJEO MAX U-300 Units under 9 SOLOSTAR) 300 unit/mL (3 the skin mL) InPn daily. Active Insulin [place], Use 5X daily. 500 Each 4 Disposable, [...] mg per by mouth 9 tablet daily. 10/11/2018 Discontinued lisinopril-hydrochlorothi Take 1 tablet 0 azide 20-12.5 mg per by mouth tablet daily. 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 HLD (hyperlipidemia) 11/03/2014 12/26/2015 documented as of this encounter (statuses as of 10/11/2018) Immunizations Name Administration Dates Next Due Td [...] Description Date Type Specialty Lucas Vieira MD [address] [place] [address] [phone] 01/04/2019 Office Visit Endocrinology Diabetes & Metabolism Regla Seo PA-C [address] [facility] [address] [place] [address] 01/28/2019 Office Visit Obstetrics & Gynecology Robin Garcia MD [address] [facility] [place] [address] 03/25/2019 Office Visit Family Medicine Edilberto Davila MD [address] [facility] [address] [place] [address] 07/28/2019 Office Visit Cardiology Health [...] Dates Group Medicare MEDICARE MEDICARE xxxxxxxxxxx 2014-P [phone] [address] B resent [id number] [place] [id number] Medicare Supplement [place] [id number] 2014-P [place] resent documented as of this encounter
--- OUTSIDE RECORDS SUMMARY | 2019-06-16 05:32 | XMS REPORT | Summary of Care ---
Author Author [facility] - Health Organization [facility] - Health Address Unknown Phone Unavailable Care Team Providers Care Logistics Operations Director Name Role Phone Robin Garcia MD PCP Reason for Visit * Reason Comments Refill Request Encounter Details Care Team Description Date Type Department Robin Garcia MD [address] [place] [phone] Refill Request 04/21/[address] [phone] Allergies Comments Active Allergy Reactions Severity Noted Date Levofloxacin Unknown - See 02/02/2015 comments Hydrocodone-Acetaminophen Nausea and/or 02/02/2015 Vomiting documented as of this encounter (statuses as of 04/22/2019) Medications End Date Status Medication Sig Dispensed [...] E 11.9 diabetes with renal manifestation Active atorvastatin 80 mg Take 1 tablet 90 tablet 4 tabletIndications: by mouth at 9 Dyslipidemia, Essential bedtime. hypertension, CKD (chronic kidney disease) stage 3, GFR 30-59 ml/min Active LOVAZA, lmpiv-6-uhqq Take 2 360 capsule 3 ethyl esters, [...] mouth daily. disease without esophagitis Active Insulin [place], Use 5X daily. 500 Each 4 Disposable, (SANDER PEN Dx Code 9 NEEDLE) 32 gauge x " E11.49 NdleIndications: Uncontrolled type 2 diabetes with [...] SKIN diabetes with renal WEEKLY manifestation Active TOUJEO SOLOSTAR U-300 INJECT 60 6 mL 0 INSULIN 300 unit/mL (1.5 UNITS 0 mL) InPn SUBCUTANEOUSL Y ONCE DAILY Active Fenofibrate 160 mg Take 1 tablet 90 tablet 0 tabletIndications: by mouth 0 Hypertriglyceridemia every morning. 04/22/2019 Discontinued (Reorder) Fenofibrate 160 mg Take 1 tablet 90 tablet 3 tabletIndications: by mouth 9 Hypertriglyceridemia every morning. documented as of this encounter (statuses as of 04/22/2019) Active Problems Problem Noted Date Well woman [...] as of this encounter (statuses as of 04/22/2019) Resolved Problems Problem Noted Date Resolved Date Vitamin D deficiency 11/07/2014 06/20/2015 Diabetes mellitus type 2, uncontrolled, without complications 11/03/2014 12/13/2014 Overview: ICD10 Diagnosis Term Stock Patcher Utility HLD (hyperlipidemia) 11/03/2014 12/26/2015 documented as of this encounter (statuses as of 04/22/2019) Immunizations Name Administration Dates Next Due Td [...] Description Date Type Specialty Lucas Vieira MD [address] [place] [address] [phone] 05/11/2019 Office Visit Endocrinology Diabetes & Metabolism Edilberto Davila MD [address] [place] [phone] 07/28/2019 Office Visit Cardiology Health Maintenance [...] filedocumented in this encounter Visit Diagnoses Diagnosis Hypertriglyceridemia Pure hyperglyceridemia documented in this encounter Insurance Type Payer Benefit Subscriber ID Effective Phone Address Plan / Dates Group Medicare MEDICARE MEDICARE xxxxxxxxxxx 2014-P [phone] [address] resent [id number] MIKE [place] [id number] Medicare Supplement [place] [id number] 2014-P [place] resent documented as of this encounter
--- OUTSIDE RECORDS SUMMARY | 2019-06-16 05:32 | XMS REPORT | Summary of Care ---
Author Author [facility] - Health Organization [facility] - Health Address Unknown Phone Unavailable Care Team Providers Care Reproduction Order Processor Name Role Phone Robin Garcia MD PCP Reason for Visit * Reason Comments Rx Concern/Question Encounter Details Care Team Description Date Type Department Lucas Vieira MD [address] [place] [address] [phone] Rx Concern/Question 05/02/2019 Telephone [facility] Endocrinology- [place] [facility] [address] [place] [address] Allergies Comments Active Allergy Reactions Severity Noted Date Levofloxacin Unknown - See 02/02/2015 comments Hydrocodone-Acetaminophen Nausea and/or 02/02/2015 Vomiting documented as of this encounter (statuses as of 05/02/2019) Medications End Date Status Medication Sig Dispensed [...] stage 3, GFR 30-59 ml/min Active LOVAZA, kgoth-5-xnax Take 2 360 capsule 3 ethyl esters, [...] mouth daily. disease without esophagitis Active Insulin [place], Use 5X daily. 500 Each 4 Disposable, [...] per by mouth 9 tablet daily. Active insulin aspart U-100 inject 15-26 72 [...] tabletIndications: by mouth 0 Hypertriglyceridemia every morning. Active blood sugar diagnostic USE THREE 300 Strip 1 (ONETOUCH VERIO) TIMES DAILY 0 stripIndications: DIRECTED. Uncontrolled type 2 DX:E11.29 diabetes with renal manifestation 05/02/2019 Discontinued (Reorder) ONETOUCH VERIO USE THREE 300 Strip 1 stripIndications: TIMES DAILY 9 Uncontrolled type 2 DIRECTED. diabetes with renal DX:E11.29 manifestation documented as of this encounter (statuses as of 05/02/2019) Active Problems Problem Noted Date Well woman [...] as of this encounter (statuses as of 05/02/2019) Resolved Problems Problem Noted Date Resolved Date Vitamin D deficiency 11/07/2014 06/20/2015 Diabetes mellitus type 2, uncontrolled, without complications 11/03/2014 12/13/2014 Overview: ICD10 Diagnosis Term Case Manager Utility HLD (hyperlipidemia) 11/03/2014 12/26/2015 documented as of this encounter (statuses as of 05/02/2019) Immunizations Name Administration Dates Next Due Td [...] Description Date Type Specialty Lucas Vieira MD [address] [place] [address] [phone] 05/11/2019 Office Visit Endocrinology Diabetes & Metabolism Edilberto Davila MD [address] [address] 07/28/2019 Office Visit Cardiology Health Maintenance [...] Dates Group Medicare MEDICARE MEDICARE xxxxxxxxxxx 2014-P [phone] resent [id number] MIKE MCKEON [phone] Medicare Supplement [place] [id number] 2014-P [place] beltran documented as of this encounter
--- OUTSIDE RECORDS SUMMARY | 2019-06-16 05:33 | XMS REPORT | Summary of Care ---
Author Author [facility] - Health Organization [facility] - Health Address Unknown Phone Unavailable Care Team Providers Care Paint Formulator Name Role Phone Robin Garcia MD PCP Reason for Visit * Reason Comments Refill Request Encounter Details Care Team Description Date Type Department Edilberto Davila MD [address] [address] Refill Request 05/18/2019 Refill [facility] Cardiology- [address], [address] [place] [address] Allergies Comments Active Allergy Reactions Severity Noted Date Levofloxacin Unknown - See 02/02/2015 comments Hydrocodone-Acetaminophen Nausea and/or 02/02/2015 Vomiting documented as of this encounter (statuses as of 05/19/2019) Medications End Date Status Medication Sig Dispensed [...] stage 3, GFR 30-59 ml/min Active LOVAZA, vcxqg-0-onmi Take 2 360 capsule 3 ethyl esters, [...] reflux mouth daily. disease without esophagitis Active SERTraline 100 mg TAKE 1 TABLET 90 tablet 4 tabletIndications: EVERY DAY 9 Anxiety Active gabapentin 300 mg TAKE 1 270 capsule 4 capsuleIndications: CAPSULE BY 9 Neuropathy MOUTH LEGS THREE TIMES DAILY NEEDED FOR PAIN Active ALPRAZolam 1 mg Take 1 tablet 40 tablet 5 tabletIndications: by mouth 2 0 Anxiety (two) times daily as needed (anxiety). Active Fenofibrate 160 mg Take 1 tablet 90 tablet 0 tabletIndications: by mouth 0 Hypertriglyceridemia every morning. Active blood sugar diagnostic USE THREE 300 Strip 1 (ONETOUCH VERIO) TIMES DAILY 0 stripIndications: DIRECTED. Uncontrolled type 2 DX:E11.29 diabetes with renal manifestation Active insulin glargine U-300 inject 64 21 mL 2 conc (TOUJEO MAX U-300 Units under 0 SOLOSTAR) 300 unit/mL (3 the skin mL) InPnIndications: daily. E11.65 Uncontrolled type 2 diabetes with renal manifestation Active insulin aspart U-100 inject 15-26 72 mL 1 (NOVOLOG FLEXPEN U-100 Units under 0 INSULIN) 100 unit/mL (3 the skin 3 mL) injectionIndications: (three) times Uncontrolled type 2 daily before diabetes with renal meals. Max manifestation daily units 80 units, E11.65 Active dulaglutide (TRULICITY) inject 1.5 mg 6 mL 1 1.5 mg/0.5 mL under the 0 PnIjIndications: skin weekly. Uncontrolled type 2 diabetes with renal manifestation Active Insulin [place], Use 5X daily. 500 Each 4 Disposable, (SANDER PEN Dx Code 0 NEEDLE) 32 gauge x 32" E11.49 NdleIndications: Uncontrolled type 2 diabetes with renal manifestation Active LISINOPRIL-HYDROCHLOROTHI Take 1 tablet 30 tablet 0 AZIDE 20-12.5 mg per by mouth once 0 tablet daily 05/19/2019 Discontinued lisinopril-hydrochlorothi Take 1 tablet 30 tablet 1 azide 20-12.5 mg per by mouth 9 tablet daily. documented as of this encounter (statuses as of 05/19/2019) Active Problems Problem Noted Date Well woman [...] as of this encounter (statuses as of 05/19/2019) Resolved Problems Problem Noted Date Resolved Date Vitamin D deficiency 11/07/2014 06/20/2015 Diabetes mellitus type 2, uncontrolled, without complications 11/03/2014 12/13/2014 Overview: ICD10 Diagnosis Term Plaster Pattern Caster Utility HLD (hyperlipidemia) 11/03/2014 12/26/2015 documented as of this encounter (statuses as of 05/19/2019) Immunizations Name Administration Dates Next Due Td [...] Treatment Care Team Description Date Type Specialty Edilberto Davila MD [address] [place] [phone] 07/28/2019 Office Visit Cardiology Lucas Vieira MD [address] [place], [place] [phone] 09/13/2019 Office Visit Endocrinology Diabetes & Metabolism Health Maintenance Due Date Last Done Comments HEPATITIS C (HCV) SCREEN 1950 DTaP,Tdap,and Td Vaccines 1960 06/04/2016 (1 - Tdap) COLONOSCOPY 08/08/1999 Zoster Recombinant 08/08/1999 Vaccine (SHINGRIX) (1 of 2) Medicare Wellness Visit 2014 Osteoporosis Screening 2014 Breast Cancer Screening 02/02/2019 02/02/2018 (MAMMOGRAM) LDL-C 09/02/2019 09/01/2018, 03/09/2018, 05/05/2017, Additional history exists URINE MICROALBUMIN 09/02/2019 09/01/2018, 11/04/2014 EYE EXAM 09/16/2019 09/15/2018 HgA1C 11/11/2019 05/11/2019, 01/04/2019, 09/01/2018, Additional history exists CREATININE (SERUM) 11/14/2019 11/13/2018, 09/01/2018, 07/13/2017, Additional history exists INFLUENZA VACCINE (#1) 2019 Postponed from 10/24/2018 (Alternative Guidelines) PNEUMOCOCCAL VACCINES 65+ 12/21/2019 Postponed from 2014 (1 of 2 - PCV13) (Alternative Guidelines) FOOT EXAM 05/10/2020 05/11/2019, 05/11/2019, 09/22/2018, Additional history exists documented as of this encounter Results Not on filedocumented in this encounter Insurance Type Payer Benefit Subscriber ID Effective Phone Address Plan / Dates Group Medicare MEDICARE MEDICARE xxxxxxxxxxx 2014-P [phone] [address] resent [id number] MIKE MCKEON [address] Medicare Supplement [place] [place] [id number] 2014-P [place] beltran documented as of this encounter
--- OUTSIDE RECORDS SUMMARY | 2019-06-16 05:33 | XMS REPORT | Summary of Care ---
Author Author [facility] - Health Organization [facility] - Health Address Unknown Phone Unavailable Care Team Providers Care Civil Litigation Attorney Name Role Phone Robin Garcia MD PCP Encounter Details Care Team Description Date Type Department Doctor Unassigned, [place] [address] [place] [id number] 05/11/2019 Orders Only [facility] [address] [place] [address] Allergies Comments Active Allergy Reactions Severity Noted Date Levofloxacin Unknown - See 02/02/2015 comments Hydrocodone-Acetaminophen Nausea and/or 02/02/2015 Vomiting documented as of this encounter (statuses as of 05/23/2019) Medications End Date Status Medication Sig Dispensed [...] stage 3, GFR 30-59 ml/min Active LOVAZA, amhfp-3-zumc Take 2 360 capsule 3 ethyl esters, [...] 2 diabetes with renal manifestation Active Insulin [place], Use 5X daily. 500 Each 4 Disposable, (SANDER PEN Dx Code 0 NEEDLE) 32 gauge x 5/32" E11.49 NdleIndications: Uncontrolled type 2 diabetes with renal manifestation documented as of this encounter (statuses as of 05/23/2019) Active Problems Problem Noted Date Well woman [...] as of this encounter (statuses as of 05/23/2019) Resolved Problems Problem Noted Date Resolved Date Vitamin D deficiency 11/07/2014 06/20/2015 Diabetes mellitus type 2, uncontrolled, without complications 11/03/2014 12/13/2014 Overview: ICD10 Diagnosis Term University Tutor Utility HLD (hyperlipidemia) 11/03/2014 12/26/2015 documented as of this encounter (statuses as of 05/23/2019) Immunizations Name Administration Dates Next Due Td [...] Davila MD [address] [place] [phone] 07/28/2019 Office Visit Cardiology Lucas Vieira MD [address] [place] [address] [phone] 09/13/2019 Office Visit Endocrinology Diabetes & Metabolism [...] history exists documented as of this encounter Procedures Comments Procedure Name Priority Date/Time Associated Diagnosis DIABETES TESTING REPORTS Routine 05/11/2019 12:01 AM CDT documented in this encounter Results Not on filedocumented in this encounter Insurance Type Payer Benefit Subscriber ID Effective Phone Address Plan / Dates Group Medicare MEDICARE MEDICARE xxxxxxxxxxx 2014-P [phone] [address] resent [id number] MIKE MCKEON [id number] Medicare Supplement [place] [place] [id number] 2014-P [place] resent documented as of this encounter
--- OUTSIDE RECORDS SUMMARY | 2019-06-16 05:33 | XMS REPORT | Summary of Care ---
Author Author [facility] - Health Organization [facility] - Health Address Unknown Phone Unavailable Care Team Providers Care Frame Sample And Pattern Supervisor Name Role Phone Robin Garcia MD PCP Encounter Details Care Team Description Date Type Department Doctor Unassigned, [place] [address] [place] [address] 05/23/2019 Orders Only [facility] [address] [place] [address] Allergies Comments Active Allergy Reactions Severity Noted Date Levofloxacin Unknown - See 02/02/2015 comments Hydrocodone-Acetaminophen Nausea and/or 02/02/2015 Vomiting documented as of this encounter (statuses as of 05/25/2019) Medications End Date Status Medication Sig Dispensed [...] stage 3, GFR 30-59 ml/min Active LOVAZA, gfwqv-0-zapi Take 2 360 capsule 3 ethyl esters, [...] 2 diabetes with renal manifestation Active Insulin [place], Use 5X daily. 500 Each 4 Disposable, (SANDER PEN Dx Code 0 NEEDLE) 32 gauge x 5/32" E11.49 NdleIndications: Uncontrolled type 2 diabetes with renal manifestation Active LISINOPRIL-HYDROCHLOROTHI Take 1 tablet 30 tablet 0 AZIDE 20-12.5 mg per by mouth once 0 tablet daily documented as of this encounter (statuses as of 05/25/2019) Active Problems Problem Noted Date Well woman [...] as of this encounter (statuses as of 05/25/2019) Resolved Problems Problem Noted Date Resolved Date Vitamin D deficiency 11/07/2014 06/20/2015 Diabetes mellitus type 2, uncontrolled, without complications 11/03/2014 12/13/2014 Overview: ICD10 Diagnosis Term Contact Lens Assistant Utility HLD (hyperlipidemia) 11/03/2014 12/26/2015 documented as of this encounter (statuses as of 05/25/2019) Immunizations Name Administration Dates Next Due Td [...] Davila MD [address] [place] [phone] 07/28/2019 Office Visit Cardiology Lucas Vieira MD [address] [place] [address] [phone] 09/13/2019 Office Visit Endocrinology Diabetes & Metabolism [...] Comments Procedure Name Priority Date/Time Associated Diagnosis AUTHORIZATION FOR RELEASE Routine 05/23/2019 OF PHI 12:01 AM CDT documented in this encounter Results Not on filedocumented in this encounter Insurance Type Payer Benefit Subscriber ID Effective Phone Address Plan / Dates Group Medicare MEDICARE MEDICARE xxxxxxxxxxx 2014-P [phone] [address] resent [id number] MIKE MCKEON [id number] Medicare Supplement [place] [place] [id number] 2014-P [place] resent documented as of this encounter
--- OUTSIDE RECORDS SUMMARY | 2019-06-16 05:33 | XMS REPORT | Summary of Care ---
Author Author [facility] - Health Organization [facility] - Health Address Unknown Phone Unavailable Care Team Providers Care Treatment Supervisor Name Role Phone Robin Garcia MD PCP Reason for Visit * Reason Comments Rx Concern/Question Encounter Details Care Team Description Date Type Department Lucas Vieira MD [address] [place] [address] [phone] Rx Concern/Question 05/19/2019 Telephone [facility] Endocrinology- [place] [facility] [address] [place] [address] Allergies Comments Active Allergy Reactions Severity Noted Date Levofloxacin Unknown - See 02/02/2015 comments Hydrocodone-Acetaminophen Nausea and/or 02/02/2015 Vomiting documented as of this encounter (statuses as of 05/20/2019) Medications End Date Status Medication Sig Dispensed [...] stage 3, GFR 30-59 ml/min Active LOVAZA, mqxpz-4-kvtc Take 2 360 capsule 3 ethyl esters, [...] 2 diabetes with renal manifestation Active Insulin [place], Use 5X daily. 500 Each 4 Disposable, (SANDER PEN Dx Code 0 NEEDLE) 32 gauge x 5/32" E11.49 NdleIndications: Uncontrolled type 2 diabetes with renal manifestation Active LISINOPRIL-HYDROCHLOROTHI Take 1 tablet 30 tablet 0 AZIDE 20-12.5 mg per by mouth once 0 tablet daily documented as of this encounter (statuses as of 05/20/2019) Active Problems Problem Noted Date Well woman [...] as of this encounter (statuses as of 05/20/2019) Resolved Problems Problem Noted Date Resolved Date Vitamin D deficiency 11/07/2014 06/20/2015 Diabetes mellitus type 2, uncontrolled, without complications 11/03/2014 12/13/2014 Overview: ICD10 Diagnosis Term Manager Process Excellence Utility HLD (hyperlipidemia) 11/03/2014 12/26/2015 documented as of this encounter (statuses as of 05/20/2019) Immunizations Name Administration Dates Next Due Td [...] Davila MD [address] [place] [phone] 07/28/2019 Office Visit Cardiology Lucas Vieira MD [address] [place] [address] [phone] 09/13/2019 Office Visit Endocrinology Diabetes & Metabolism [...] Dates Group Medicare MEDICARE MEDICARE xxxxxxxxxxx 2014-P [phone] [address] resent [id number] MIKE MCKEON [id number] Medicare Supplement [place] [id number] 2014-P [place] resent documented as of this encounter
--- OUTSIDE RECORDS SUMMARY | 2019-06-16 05:33 | XMS REPORT | Summary of Care ---
Author Author [facility] - Health Organization [facility] - Health Address Unknown Phone Unavailable Care Team Providers Care Personal Care Worker Name Role Phone Robin Garcia MD PCP Reason for Visit * Reason Comments Medical Records [facility] Release Requested Encounter Details Care Team Description Date Type Department Edilberto Davila MD [address] [address] Medical Records ([employer] [facility] Release Requested) 05/23/2019 Telephone [facility] Cardiology- [address], [address] [place] [address] Allergies Comments Active Allergy Reactions [...] stage 3, GFR 30-59 ml/min Active LOVAZA, oibvc-4-grbj Take 2 360 capsule 3 ethyl esters, [...] 2 diabetes with renal manifestation Active Insulin [place], Use 5X daily. 500 Each 4 Disposable, (SANDER PEN Dx Code 0 NEEDLE) 32 gauge x " E11.49 NdleIndications: [...] complications 11/03/2014 12/13/2014 Overview: ICD10 Diagnosis Term Box Nailer Utility HLD (hyperlipidemia) 11/03/2014 12/26/2015 documented as [...] Edilberto Davila MD [address] [address] [place] [phone] 07/28/2019 Office Visit Cardiology Lucas Vieira MD [address] [place] [address] [phone] 09/13/2019 Office Visit Endocrinology Diabetes & Metabolism [...] Dates Group Medicare MEDICARE MEDICARE xxxxxxxxxxx 2014-P [phone] [address] resent [id number] MIKE MCKEON [phone] Medicare Supplement [employer] [place] OF [id number] 2014-P [place] resent documented as of this encounter
--- OUTSIDE RECORDS SUMMARY | 2019-06-16 05:33 | XMS REPORT | Summary of Care ---
Author Author [facility] - Health Organization [facility] - Health Address Unknown Phone Unavailable Care Team Providers Care Utility Appraiser Name Role Phone Robin Garcia MD PCP Reason for Visit * Reason Comments Follow-up Diabetes Mellitus II Encounter Details Care Team Description Date Type Department Lucas Vieira MD [address] [place] [address] [phone] Uncontrolled type 2 diabetes with renal manifestation (Primary Dx); Hypertriglyceridemia; Essential hypertension; CKD (chronic kidney disease) stage 3, GFR 30-59 ml/min 05/11/2019 Office Visit [facility] Endocrinology- [employer] Professional [facility] Building [address] [place] [address] DrBrian [address] [place] [address] Allergies Comments Active Allergy Reactions Severity Noted Date Levofloxacin Unknown - See 02/02/2015 comments Hydrocodone-Acetaminophen Nausea and/or 02/02/2015 Vomiting documented as of this encounter (statuses as of 05/11/2019) Medications End Date Status Medication Sig Dispensed [...] stage 3, GFR 30-59 ml/min Active LOVAZA, [id number] Take 2 360 capsule 3 ethyl esters, [...] per by mouth 9 tablet daily. Active ALPRAZolam 1 mg Take 1 [...] 2 diabetes with renal manifestation Active Insulin [place], Use 5X daily. 500 Each 4 Disposable, (SANDER PEN Dx Code 0 NEEDLE) 32 gauge x 5/32" E11.49 NdleIndications: Uncontrolled type 2 diabetes with renal manifestation 05/11/2019 Discontinued (Reorder) Insulin [place], Use 5X daily. 500 Each 4 Disposable, (SANDER PEN Dx Code 9 NEEDLE) 32 gauge x 5/32" E11.49 NdleIndications: Uncontrolled type 2 diabetes with renal manifestation 05/11/2019 Discontinued (Reorder) insulin aspart U-100 inject 15-26 72 mL 1 (NOVOLOG FLEXPEN U-100 Units under 9 INSULIN) 100 unit/mL (3 the skin 3 mL) injectionIndications: (three) times Uncontrolled type 2 daily before diabetes with renal meals. Max manifestation daily units 79. 05/11/2019 Discontinued (Reorder) insulin glargine U-300 inject 60 6 mL 2 conc (TOUJEO MAX U-300 Units under 9 SOLOSTAR) 300 unit/mL (3 the skin mL) InPn daily. 05/11/2019 Discontinued (Reorder) TRULICITY 1.5 mg/0.5 mL INJECT ONE 4 mL 0 PnIjIndications: DOSE UNDER 0 Uncontrolled type 2 THE SKIN diabetes with renal WEEKLY manifestation 05/11/2019 Discontinued TOUJEO SOLOSTAR U-300 INJECT 60 6 mL 0 INSULIN 300 unit/mL (1.5 UNITS 0 mL) InPn SUBCUTANEOUSL Y ONCE DAILY documented as of this encounter (statuses as of 05/11/2019) Active Problems Problem Noted Date Well woman [...] as of this encounter (statuses as of 05/11/2019) Resolved Problems Problem Noted Date Resolved Date Vitamin D deficiency 11/07/2014 06/20/2015 Diabetes mellitus type 2, uncontrolled, without complications 11/03/2014 12/13/2014 Overview: ICD10 Diagnosis Term Clinical Allergist Utility HLD (hyperlipidemia) 11/03/2014 12/26/2015 documented as of this encounter (statuses as of 05/11/2019) Immunizations Name Administration Dates Next Due Td [...] Signs Reading Time Taken Comments Vital Sign 135/72 05/11/2019 8:41 AM CDT Blood Pressure 62 05/11/2019 8:41 AM CDT Pulse - - Temperature 16 05/11/2019 8:41 AM CDT Respiratory Rate - - Oxygen Saturation - - Inhaled Oxygen Concentration 86.3 kg (190 lb 3.2 oz) 05/11/2019 8:41 AM CDT Weight 160 cm (5' 3") 05/11/2019 8:41 AM CDT Height 33.69 05/11/2019 8:41 AM CDT Body Mass Index documented in this encounter Patient Instructions * Patient Instructions* Lucas Vieira MD - 05/11/2019 8:30 AM CDT Continue Toujeo 64 units in morning once daily Continue Novolog before Lunch and dinner as below: Take half dose when you eat salad only If sugar is 71-100, Do not take novolog IF sugar is 101-150, take 15 units If sugar is 151-200, take 17 units If sugar is 201-250, take 18 units If sugar is 251-300, take 20 units If sugar is over 301-350, take 22 units If sugar is over 351, take 24 units Continue Novolog before breakfast as below: Take half dose when you eat salad on ly If sugar is 71-100, Do not take novolog IF sugar is 101-150, take 17 units If sugar is 151-200, take 19 units If sugar is 201-250, take 20 units If sugar is 251-300, take 22 units If sugar is over 301-350, take 24 units If sugar is over 351, take 26 units You can take additional Novolog 5 units at bedtime when your sugar at 170-200, t lazara 7 units when sugar >200 at that time Continue Trulicity once a week documented in this encounter Progress Notes * Lucas Vieira MD - 05/11/2019 8:30 AM CDT chief complaint: Type 2 diabetes mellitus, dyslipidemia-follow up HPI Patient is a 68 year old /White female who is here today for Diabetes M ellitus Type 2. Patient's diabetes is complicated by depression, hyperlipidemia, hypertension, C KD stage 3, obesity and sedentary lifestyle. Patient underwent Stent to right Vertebrobasilar stenosis, Vertebrobasilar insu fficiency in 03/2016. Patient had a syncope 01/23/2018, admitted [facility] ( records reviewed)- Normal GFR, glucose 298. Had hypotension, was advised to stop Lisinjopril- HCTZ. Called cardiology and underwent carotid US 01/2018: Nuclear stress est normal- dr Davila frame table operator helper Work up negative for hypercortisolism as patient with cushingoid features Type 2 diabetes mellitus Last visit was in 12/2018 with A1C at 7.6 The patient was advised to continue No volog SSI and Toujeo/trulicity. However, her in 02/2019 and patient has been under lots of stress and not eating right Reports glucose has been trending higher.The patient Checks glucose 4-5 times da génesis. She brought meter to be reviewed. Average glucose. Am fasting 120-314. Pos t lunch 94-184 post dinner 140-266, bedtime 170-276 Current diabetes medications taken: Trulicity 1.5 mg, Toujeo 60units QAM. SSI N ovolog 15-30 units TIDAC Hypoglycemia:no further episode , lowest BG at 84 Dyslipidemia: TG improved in 12/2015 from > 600 to 173 Takes Fenofibrate 160 mg, Lipitor 80 mg daily, Lovaza CKD stage 3: sees nephrology. GFR 34 in 08/2018 DIABETIC HEALTH MAINTENANCE Last Ophthalmology visit was 08/2018, + cataracts,, no retinopathy Patient on ROCIO/ARB therapy - Yes Patient on ASA therapy - Yes. Patient on Statin/Fibrate therapy - Yes. Patient instructed about daily feet exams, last sensation exam was 05/11/2019 Patient has received Nutrition/Diet/Diabetes Education on 10/2014 Patient's Medications START taking these medications No medications on file CONTINUE taking these medications which have NOT CHANGED ALPRAZOLAM 1 MG TABLET Take 1 tablet by mouth 2 (two) times daily as needed (anxiety). AMLODIPINE 5 MG TABLET TAKE 1 TABLET EVERY DAY ASPIRIN 81 MG CHEWABLE TABLET Take 81 mg by mouth daily. ATORVASTATIN 80 MG TABLET Take 1 tablet by mouth at bedtime. BLOOD SUGAR DIAGNOSTIC (ONETOUCH VERIO) STRIP USE THREE TIMES DAILY DIREC LINDA. DX:E11.29 FENOFIBRATE 160 MG TABLET Take 1 tablet by mouth every morning. GABAPENTIN 300 MG CAPSULE TAKE 1 CAPSULE BY MOUTH LEGS THREE TIMES DAILY NEEDED FOR PAIN LANCETS (ACCU-CHEK FASTCLIX) MISC Use as directed. E 11.9. Three times daily LANCING DEVICE WITH LANCETS (ACCU-CHEK FASTCLIX) KIT Use as directed. Three times daily. E 11.9 LISINOPRIL-HYDROCHLOROTHIAZIDE 20-12.5 MG PER TABLET Take 1 tablet by mouth daily. LOVAZA, [id number] ETHYL ESTERS, 1 GRAM CAPSULE Take 2 capsules by mouth 2 (two) times daily before breakfast and dinner. METHOCARBAMOL 500 MG TABLET Take 500 mg by mouth 4 (four) times daily. OMEPRAZOLE 40 MG CAPSULE Take 1 capsule by mouth daily. SERTRALINE 100 MG TABLET TAKE 1 TABLET EVERY DAY START taking Modified Medications as Prescribed Modified Medication Previous Medication DULAGLUTIDE (TRULICITY) 1.5 MG/0.5 ML PNIJ TRULICITY 1.5 mg/0.5 mL PnIj inject 1.5 mg under the skin weekly. INJECT ONE DOSE UNDER THE SKIN WEEKL Y INSULIN ASPART U-100 (NOVOLOG FLEXPEN U-100 INSULIN) 100 UNIT/ML (3 ML) INJECTI ON insulin aspart U-100 (NOVOLOG FLEXPEN U-100 INSULIN) 100 unit/mL (3 mL) injec tion inject 15-26 Units under the skin 3 (three) times daily before meals. Max da génesis units 80 units, E11.65 inject 15-26 Units under the skin 3 (three) times daily before meals. Max daily units 79. INSULIN GLARGINE U-300 CONC (TOUJEO MAX U-300 SOLOSTAR) 300 UNIT/ML (3 ML) INPN insulin glargine U-300 conc (TOUJEO MAX U-300 SOLOSTAR) 300 unit/mL (3 mL) InPn inject 64 Units under the skin daily. E11.65 inject 60 Units under the sk in daily. INSULIN NEEDLES, DISPOSABLE, (SANDER PEN NEEDLE) 32 GAUGE X 5/32" NDLE Insulin Ne edles, Disposable, (SANDER PEN NEEDLE) 32 gauge x 5/32" Ndle Use 5X daily. Dx Code E11.49 Use 5X daily. Dx Code E11.49 STOP taking these medications TOUJEO SOLOSTAR U-300 INSULIN 300 UNIT/ML (1.5 ML) INPN INJECT 60 UNITS SUBC UTANEOUSLY ONCE DAILY HISTORY Past Medical History: Diagnosis Date Allergic rhinitis Depression DM2 (diabetes mellitus, type 2) Dry eye Esophageal reflux HLD (hyperlipidemia) HTN (hypertension) Past Surgical History: Procedure Laterality Date APPENDECTOMY HB PERQ STENT/CHEST VERT ART 04/26/2016 HYSTERECTOMY complete age 54 REMOVAL GALLBLADDER Family History Problem Relation Age of Onset Diabetes Mother Diabetes Father Heart Brother Social History Socioeconomic History Marital status: Spouse [...] Sexual Activity Alcohol use: No Alcohol/week: 0.0 standard drinks Drug use: No Sexual activity: Yes Partners: Male control/protection: Surgical Lifestyle Physical activity: Days per week: Not on file Minutes per session: Not on file Stress: Not on file Relationships Social connections: Talks on phone: Not on file Gets together: Not on file Attends roman catholic service: Not on file Active member of [...] Social History Narrative Retired in July 2014 Bereaved 03/22/2019 REVIEW OF SYSTEMS Constitutional: + weight gain, +fatigue Eyes: denies blurry vision, denies diplopia and denies pain. Neck: denies pain, denies swollen glands Cardiovascular: denies chest pain , denies irregular pulse and denies palpitatio ns. Respiratory: denies dyspnea on exertion and denies shortness of breath. Gastrointestinal: denies abdominal pain, denies constipation and denies diarrhea . Genitourinary: denies burning and denies dysuria. Musculoskeletal: denies back pain, denies muscle pain and denies weakness. Skin: denies dry skin and denies hair changes. Neuro:+ numbness ,+tingling and denies tremor. Psych: +stress Endocrine: denies goiter, denies hair loss, denies intolerance to cold, denies i ntolerance to heat, denies polydipsia, denies polyphagia and denies polyuria. PHYSICAL EXAM POCT GLU (mg/dL) Date Value 06/04/2016 127 (H) CREATININE-Q (mg/dL) Date Value 11/13/2018 1.02 (H) CHOL (mg/dL) Date Value 09/01/2018 182 CHOLESTEROL, TOTAL-Q (mg/dL) Date Value 10/11/2016 205 (H) HDL CHOLESTEROL-Q (mg/dL) Date Value 10/11/2016 50 HDL (mg/dL) Date Value 09/01/2018 69 LDL CHOL (mg/dL) Date Value 09/01/2018 57 [id number] (mg/dL (calc)) Date Value 10/11/2016 76 TRIG (mg/dL) Date Value 09/01/2018 282 (H) TRIGLYCERIDES-Q (mg/dL) Date Value 10/11/2016 394 (H) MICROAL/CR (ug/mmol creatinine) Date Value 09/01/2018 1,534 POCT HBA1C (%) Date Value 05/11/2019 8.3 (A) 01/04/2019 7.6 (A) HGB A1C (%) Date Value 04/23/2016 8.1 (H) HEMOGLOBIN A1c-Q (% of total Hgb) Date Value 06/16/2015 7.6 (H) BP 135/72 (BP Location: Left arm, Patient Position: Sitting, BP CUFF SIZE: Adult Large) | Pulse 62 | Resp 16 | Ht 5' 3" (1.6 m) | Wt 190 lb 3.2 oz (86.3 kg) | BMI 33.69 kg/m General: alert, oriented times three, no apparent distress, appearing age approp riate.Central obesity with very thin extremities, upper and lower. Skin: skin color and turgor are normal Head: normocephalic, no masses, lesions, tenderness or abnormalities. Eyes: anicteric sclera, pupils are equally round and reactive to light. Neck: +acanthosis nigricans Thyroid: normal size and consistency to palaption Lungs: good diaphragmatic excursion, lungs clear to auscultation bilaterally. Heart: regular rate and rhythm, no murmurs, gallops or rubs. Abdomen: abdomen soft, non-tender, normal active bowel sounds, + obese. Neuro: unremarkable without focal findings. Extremities/Musculoskeletal: no cyanosis, no edema . Sensory exam of the foot is normal. Monofilament exam with sensation Right: 5/5, Left: 5/5. Lesions absent Ulcers Absent Peripheral pulses present 2+. ASSESSMENT 1. Uncontrolled type 2 diabetes with renal manifestation -A1C (target=6-7%): 8.5 (06/11) -->8.0(09/10)-->7.6(01/11)--->8.3(05/12) -glucose range: hyperglycemia in AM fasting -no hypoglycemia -complication: +neuropathy + nephropathy +macrovascular: PAD -medication limitation: metformin cause GI symptoms -diet: fast food at time -exercise: limited by busy schedule Plan -reinterated to check glucose at least TID alternating fasting and 2 hours post meals -urged compliance with diet/exercise - POCT HEMOGLOBIN A1C TEST - insulin glargine U-300 conc (TOUJEO MAX U-300 SOLOSTAR) 300 unit/mL (3 mL) InP n; inject 64 Units under the skin daily. E11.65 Dispense: 21 mL; Refill: 2 - insulin aspart U-100 (NOVOLOG FLEXPEN U-100 INSULIN) 100 unit/mL (3 mL) inject ion; inject 15-26 Units under the skin 3 (three) times daily before meals. Max d aily units 80 units, E11.65 Dispense: 72 mL; Refill: 1 - dulaglutide (TRULICITY) 1.5 mg/0.5 mL PnIj; inject 1.5 mg under the skin weekl y. Dispense: 6 mL; Refill: 1 - Insulin Chase, Disposable, (SANDER PEN NEEDLE) 32 gauge x 5/32" Ndle; Use 5X d aily. Dx Code E11.49 Dispense: 500 Each; Refill: 4 Patient Instructions Continue Toujeo 64 units in morning once daily Continue Novolog before Lunch and dinner as below: Take half dose when you eat salad only If sugar is 71-100, Do not take novolog IF sugar is 101-150, take 15 units If sugar is 151-200, take 17 units If sugar is 201-250, take 18 units If sugar is 251-300, take 20 units If sugar is over 301-350, take 22 units If sugar is over 351, take 24 units Continue Novolog before breakfast as below: Take half dose when you eat salad on ly If sugar is 71-100, Do not take novolog IF sugar is 101-150, take 17 units If sugar is 151-200, take 19 units If sugar is 201-250, take 20 units If sugar is 251-300, take 22 units If sugar is over 301-350, take 24 units If sugar is over 351, take 26 units You can take additional Novolog 5 units at bedtime when your sugar at 170-200, t lazara 7 units when sugar >200 at that time Continue Trulicity once a week 2. Hypertriglyceridemia Comment: High Tg in 08/2018 Plan: Continue current meds Fenofibrate 160 mg, Lipitor 80 mg daily, Lovaza 3. Essential hypertension Comment: BP in clinic At goal Plan: F/U with cardiology 4. CKD (chronic kidney disease) stage 3, GFR 30-59 ml/min Comment:Improved. GFR at 34 in 08/2018 Plan: Monitor GFR- documented in this encounter Plan of Treatment Care Team Description Date Type Specialty Edilberto Davila MD [address] [place] [address] 07/28/2019 Office Visit Cardiology Lucas Vieira MD [address] [place] [address] [phone] 09/13/2019 Office Visit Endocrinology Diabetes & Metabolism [...] (Alternative Guidelines) documented as of this encounter Procedures Comments Procedure Name Priority Date/Time Associated Diagnosis POCT HEMOGLOBIN A1C TEST Routine 05/11/2019 Uncontrolled type 2 diabetes with renal manifestation documented in this encounter Results * POCT HEMOGLOBIN A1C TEST (05/11/2019) POCT HBA1C 8.3 (A) 4 - 6 % Specimen Blood - CAPILLARY documented in this encounter Visit Diagnoses Diagnosis Uncontrolled type 2 diabetes with renal manifestation - Primary Type II or unspecified type diabetes mellitus with renal manifestations, uncontrolled Hypertriglyceridemia Pure hyperglyceridemia Essential hypertension Unspecified essential hypertension CKD (chronic kidney disease) stage 3, GFR 30-59 ml/min Chronic kidney disease, Stage III (moderate) documented in this encounter Insurance Type Payer Benefit Subscriber ID Effective Phone Address Plan / Dates Group Medicare MEDICARE MEDICARE xxxxxxxxxxx 2014-P [phone] resent [id number] [place] [id number] Medicare Supplement [employer] [place] [id number] 2014-P [place] baxterent documented as of this encounter
--- OUTSIDE RECORDS SUMMARY | 2019-06-16 05:33 | XMS REPORT | Summary of Care ---
Author Author [facility] - Health Organization [facility] - Health Address Unknown Phone Unavailable Care Team Providers Care Paste Maker Name Role Phone Robin Garcia MD PCP Reason for Visit * Reason Comments Refill Request Encounter Details Care Team Description Date Type Department Lucas Vieira MD [address] [place] [address] [phone] Refill Request 05/05/2019 Refill [facility] [address] [place] [phone] Allergies Comments Active Allergy Reactions Severity Noted Date Levofloxacin Unknown - See 02/02/2015 comments Hydrocodone-Acetaminophen Nausea and/or 02/02/2015 Vomiting documented as of this encounter (statuses as of 05/07/2019) Medications End Date Status Medication Sig Dispensed [...] stage 3, GFR 30-59 ml/min Active LOVAZA, [id number] Take 2 360 capsule 3 ethyl esters, [...] mouth daily. disease without esophagitis Active Insulin [place], Use 5X daily. 500 Each 4 Disposable, [...] type 2 DX:E11.29 diabetes with renal manifestation documented as of this encounter (statuses as of 05/07/2019) Active Problems Problem Noted Date Well woman [...] as of this encounter (statuses as of 05/07/2019) Resolved Problems Problem Noted Date Resolved Date Vitamin D deficiency 11/07/2014 06/20/2015 Diabetes mellitus type 2, uncontrolled, without complications 11/03/2014 12/13/2014 Overview: ICD10 Diagnosis Term Glass Laminating Operator Utility HLD (hyperlipidemia) 11/03/2014 12/26/2015 documented as of this encounter (statuses as of 05/07/2019) Immunizations Name Administration Dates Next Due Td [...] Description Date Type Specialty Lucas Vieira MD [address] [place] [address] [phone] 05/11/2019 Office Visit Endocrinology Diabetes & Metabolism Edilberto Davila MD [address] [place] [phone] 07/28/2019 Office Visit Cardiology Health Maintenance Due [...] Dates Group Medicare MEDICARE MEDICARE xxxxxxxxxxx 2014-P [phone] [address] resent [id number] [place] [id number] Medicare Supplement [employer] [place] [id number] 2014-P [place] beltran documented as of this encounter
--- OUTSIDE RECORDS SUMMARY | 2019-06-16 05:33 | XMS REPORT | Summary of Care ---
Author Author [facility] - [employer] Organization [facility] - [facility] Address Unknown Phone Unavailable Care Team Providers Care Tonguer Name Role Phone Robin Garcia MD PCP Reason for Visit * Reason Comments Prescription Clarification of refill for insulin aspart/novolog was faxed. Called pharmacy to confirm what needed to be clarified and they said aspart is not preferred and though novolog is preferred, it was expensive and asked if Novolin R could be prescribed instead? Previous encounter by [employer] in [facility] pharmacy indicated it was too soon for patient to filler picker prescription and that's why there was some pushback, however, now pharmacy is saying novolog is covered, but expensive for the patient. Encounter Details Care Team Description Date Type Department PietroBrinda forman, RD [address] [place] [address] [phone] Prescription (Clarification of refill for insulin aspart/novolog was faxed. Called pharmacy to confirm what needed to be clarified and they said aspart is not preferred and though novolog is preferred, it was expensive and asked if Novolin R could be prescribed instead? Previous encounter by [employer] in [facility] pharmacy indicated it was too soon for patient to filler picker prescription and that's why there was some pushback, however, now pharmacy is saying novolog is covered, but expensive for the patient. ) 05/27/2019 Telephone [facility] [place] [facility] [address] [place] [phone] Allergies Comments Active Allergy Reactions Severity Noted Date Levofloxacin Unknown - See 02/02/2015 comments Hydrocodone-Acetaminophen Nausea and/or 02/02/2015 Vomiting documented as of this encounter (statuses as of 05/27/2019) Medications End Date Status Medication Sig Dispensed [...] stage 3, GFR 30-59 ml/min Active LOVAZA, [id number] Take 2 360 capsule 3 ethyl esters, [...] 2 diabetes with renal manifestation Active Insulin [place], Use 5X daily. 500 Each 4 Disposable, (SANDER PEN Dx Code 0 NEEDLE) 32 gauge x 5/32" E11.49 NdleIndications: Uncontrolled type 2 diabetes with renal manifestation Active LISINOPRIL-HYDROCHLOROTHI Take 1 tablet 30 tablet 0 AZIDE 20-12.5 mg per by mouth once 0 tablet daily documented as of this encounter (statuses as of 05/27/2019) Active Problems Problem Noted Date Well woman [...] as of this encounter (statuses as of 05/27/2019) Resolved Problems Problem Noted Date Resolved Date Vitamin D deficiency 11/07/2014 06/20/2015 Diabetes mellitus type 2, uncontrolled, without complications 11/03/2014 12/13/2014 Overview: ICD10 Diagnosis Term Collar Pointer Utility HLD (hyperlipidemia) 11/03/2014 12/26/2015 documented as of this encounter (statuses as of 05/27/2019) Immunizations Name Administration Dates Next Due Td [...] Specialty Edilberto Davila MD [address] [phone] 07/28/2019 Office Visit Cardiology Lucas Vieira MD [address] [place] [address] [phone] 09/13/2019 Office Visit Endocrinology Diabetes & Metabolism [...] Dates Group Medicare MEDICARE MEDICARE xxxxxxxxxxx 2014-P [phone] resent [id number] [place] [id number] Medicare Supplement [employer] [place] [id number] 2014-P [place] resent documented as of this encounter
--- OUTSIDE RECORDS SUMMARY | 2019-06-16 05:33 | XMS REPORT | Summary of Care ---
Author Author [facility] - Health Organization [facility] - Health Address Unknown Phone Unavailable Care Team Providers Care Ward Service Supervisor Name Role Phone Robin Garcia MD PCP Reason for Visit * Reason Comments Follow-up Diabetes Mellitus II Encounter Details Care Team Description Date Type Department Lucas Vieira MD [address] [place] [address] [phone] Uncontrolled type 2 diabetes with renal manifestation (Primary Dx); Hypertriglyceridemia; Essential hypertension; CKD (chronic kidney disease) stage 3, GFR 30-59 ml/min 05/11/2019 Office Visit [facility] Endocrinology- [place] [facility] [address] [place] [address] Dr[address] [place] [address] Allergies Comments Active Allergy Reactions [...] stage 3, GFR 30-59 ml/min Active LOVAZA, [id number] Take 2 360 capsule 3 ethyl esters, [...] 2 diabetes with renal manifestation Active Insulin [place], Use 5X daily. 500 Each 4 Disposable, (SANDER PEN Dx Code 0 NEEDLE) 32 gauge x 5/32" E11.49 NdleIndications: Uncontrolled type 2 diabetes with renal manifestation 05/11/2019 Discontinued (Reorder) Insulin [place], Use 5X daily. 500 Each 4 Disposable, [...] complications 11/03/2014 12/13/2014 Overview: ICD10 Diagnosis Term Ground Instructor Advanced Utility HLD (hyperlipidemia) 11/03/2014 12/26/2015 documented as [...] a syncope 01/23/2018, admitted over night in [facility] ( records reviewed)- Normal GFR, glucose 298. Had hypotension, was advised to stop Lisinjopril- HCTZ. Called cardiology and underwent carotid US 01/2018: Nuclear stress est normal- dr Davila audience coordinator Work up negative for hypercortisolism as patient [...] Take 1 tablet by mouth daily. LOVAZA, [id number] ETHYL ESTERS, 1 GRAM CAPSULE Take 2 [...] X 5/32" NDLE Insulin Ne edles, Disposable, (SANEDR PEN NEEDLE) 32 gauge x 5/32" Ndle [...] file Gets together: Not on file Attends restorationism service: Not on file Active member of [...] LDL CHOL (mg/dL) Date Value 09/01/2018 57 [id number] (mg/dL (calc)) Date Value 10/11/2016 76 TRIG [...] Dispense: 6 mL; Refill: 1 - Insulin [place], Disposable, (SANDER PEN NEEDLE) 32 gauge x [...] Care Team Description Date Type Specialty Edilberto aDvila MD [address] [place] [address] 07/28/2019 Office Visit Cardiology Lucas Vieira MD [address] [place] [address] [phone] 09/13/2019 Office Visit Endocrinology Diabetes & Metabolism [...] Dates Group Medicare MEDICARE MEDICARE xxxxxxxxxxx 2014-P [phone] resent [id number] [place] [id number] Medicare Supplement [employer] [place] [id number] 2014-P [place] baxterent documented as of this encounter
--- OUTSIDE RECORDS SUMMARY | 2019-06-16 05:34 | XMS REPORT | Summary of Care ---
Author Author [facility] - [facility] Address Unknown Phone Unavailable Care Team Providers Care Dope Worker Name Role Phone Robin Garcia MD PCP Reason for Visit * Reason Comments Prescription Clarification of refill for insulin aspart/novolog was faxed. Called pharmacy to confirm what needed to be clarified and they said aspart is not preferred and though novolog is preferred, it was expensive and asked if Novolin R could be prescribed instead? Previous encounter by RETAIL WIRELESS SALES CONSULTANT in [facility] pharmacy indicated it was too soon for patient to pickling solution maker prescription and that's why there was some pushback, however, now pharmacy is saying novolog is covered, but expensive for the patient. Encounter Details Care Team Description Date Type Department PietroBrinda forman, RD [address] [place] [address] [phone] Prescription (Clarification of refill for insulin aspart/novolog was faxed. Called pharmacy to confirm what needed to be clarified and they said aspart is not preferred and though novolog is preferred, it was expensive and asked if Novolin R could be prescribed instead? Previous encounter by RETAIL WIRELESS SALES CONSULTANT in [facility] pharmacy indicated it was too soon for patient to pickling solution maker prescription and that's why there was some pushback, however, now pharmacy is saying novolog is covered, but expensive for the patient. ) 05/27/[address] [facility] [address] [place] [id number] Allergies Comments Active Allergy Reactions Severity Noted [...] stage 3, GFR 30-59 ml/min Active LOVAZA, [id number] Take 2 360 capsule 3 ethyl esters, [...] 2 diabetes with renal manifestation Active Insulin [place], Use 5X daily. 500 Each 4 Disposable, [...] complications 11/03/2014 12/13/2014 Overview: ICD10 Diagnosis Term Parts Specialist Utility HLD (hyperlipidemia) 11/03/2014 12/26/2015 documented as [...] Specialty Edilberto Davila MD [address] [phone] 07/28/2019 Office Visit Cardiology Lucas Vieira MD [address] [place] [address] [phone] 09/13/2019 Office Visit Endocrinology Diabetes & Metabolism [...] Dates Group Medicare MEDICARE MEDICARE xxxxxxxxxxx 2014-P [phone] resent [id number] [place] [id number] Medicare Supplement [employer] [place] [id number] 2014-P [place] resent documented as of this encounter
--- OUTSIDE RECORDS SUMMARY | 2019-06-16 05:34 | XMS REPORT | Summary of Care ---
Author Author [facility] - Health Organization [facility] - Health Address Unknown Phone Unavailable Care Team Providers Care Campus Administrative Assistant Name Role Phone Robin Garcia MD PCP Reason for Visit * Reason Comments Refill Request Encounter Details Care Team Description Date Type Department Edilberto Davila MD [address] [facility] [address] [address] Refill Request 06/09/2019 Refill [facility] Cardiology- [address], [address] [place] [address] Allergies Comments Active Allergy Reactions Severity Noted Date Levofloxacin Unknown - See 02/02/2015 comments Hydrocodone-Acetaminophen Nausea and/or 02/02/2015 Vomiting documented as of this encounter (statuses as of 06/09/2019) Medications End Date Status Medication Sig Dispensed [...] stage 3, GFR 30-59 ml/min Active LOVAZA, [id number]-[id number] Take 2 360 capsule 3 ethyl esters, [...] 2 diabetes with renal manifestation Active Insulin [place], Use 5X daily. 500 Each 4 Disposable, (SANDER PEN Dx Code 0 NEEDLE) 32 gauge x " E11.49 NdleIndications: Uncontrolled type 2 diabetes with renal manifestation Active lisinopril-hydrochlorothi Take 1 tablet 30 tablet 3 azide 20-12.5 mg per by mouth 0 tablet daily. Please have lab work before next follow up appointment. Thank you 06/09/2019 Discontinued LISINOPRIL-HYDROCHLOROTHI Take 1 tablet 30 tablet 0 AZIDE 20-12.5 mg per by mouth once 0 tablet daily documented as of this encounter (statuses as of 06/09/2019) Active Problems Problem Noted Date Well woman [...] as of this encounter (statuses as of 06/09/2019) Resolved Problems Problem Noted Date Resolved Date Vitamin D deficiency 11/07/2014 06/20/2015 Diabetes mellitus type 2, uncontrolled, without complications 11/03/2014 12/13/2014 Overview: ICD10 Diagnosis Term Chair Springer Utility HLD (hyperlipidemia) 11/03/2014 12/26/2015 documented as of this encounter (statuses as of 06/09/2019) Immunizations Name Administration Dates Next Due Td [...] Davila MD [address] [place] [phone] 07/28/2019 Office Visit Cardiology Lucas Vieira MD [address] [place] [address] [phone] 09/13/2019 Office Visit Endocrinology Diabetes & Metabolism [...] Dates Group Medicare MEDICARE MEDICARE xxxxxxxxxxx 2014-P [phone] resent [id number] [place] [phone] Medicare Supplement [employer] [place] OF [id number] 2014-P [place] resent documented as of this encounter
--- NOTE | 2019-06-16 07:15 | NUR ---
SPIRITUAL CARE - Pre-Surgery Assessment: Pt in bed. Pt reported supportive attention from family and friends. Intervention: I provided pastoral presence, hospitality, and sympathetic listening. I acquainted pt with availability of athletic equipment custodian while hospitalized. Outcome: Pt expressed appreciation for visit. No need for follow up indicated at this time. AMINAH Jimenezlain Spiritual Care Department O: [phone]
[2019-06-16 10:10] VITALS: BP 153/58
--- NOTE | 2019-06-16 11:14 | Operative Report ---
DATE OF PROCEDURE: 06/16/2019 SURGEON: Isak Dee MD PREOPERATIVE DIAGNOSIS: Stenosing tenosynovitis of right index finger, right middle finger, and right ring finger. POSTOPERATIVE DIAGNOSIS: Stenosing tenosynovitis of right index finger, right middle finger, and right ring finger. OPERATION PERFORMED: Tenovaginotomy of right index finger, right middle finger, and right ring finger. ANESTHESIA: General. HISTORY: The patient is a 68-year-old left hand-dominant female, who presents with stenosing tenosynovitis of the right index finger, right middle finger, and right ring finger that is recalcitrant to conservative treatment. The risks, benefits, and alternatives of treatment were discussed with the patient and they are prepared to undergo the procedure as outlined. DESCRIPTION OF PROCEDURE: The patient was brought to the operating theater. After the induction of adequate general/regional anesthesia, the patient was prepped and draped in a supine position. A time out was performed by the entire operating room team. An oblique incision was marked out over the A1 ashley of the right index finger, right middle finger, and right ring finger. The upper extremity was exsanguinated, and a tourniquet was inflated to a pressure of 250 mmHg. The incision was made through the skin and subcutaneous tissues. All venous tributaries were controlled with bipolar cautery. The incision was deepened through the palmar tissues. The neurovascular bundles on the radial and ulnar sides of the flexor tendon sheath were identified and retracted away from the flexor tendon sheath and preserved. The A1 ashley of the affected finger was identified and incised longitudinally, taking care to protect and preserve the flexor tendons within the sheath. After the complete length of the ashley had been transected, the tendons were placed in a range of motion. There was noted to be good motion without any locking. The wound was then copiously irrigated with bacteriostatic saline and closed with 5-0 nylon in an interrupted horizontal mattress fashion. A Marcaine field block was performed at the operative site. The tourniquet was deflated. All the fingers pinked up nicely. A sterile bulky conforming bandage was applied to the hand, and the patient was returned to the recovery room in satisfactory condition and was discharged with a postoperative instruction sheet as well as a followup appointment. MD JIGNESH Jason/MODL /[id number]
== END | disposition home or self-care (01) ==
LOC: OR 05:29
PROVIDERS: ATTEND Plastic Surgery
DX: M65.321 Trigger finger, right index finger (principal); M65.331 Trigger finger, right middle finger; M65.341 Trigger finger, right ring finger; E11.22 Type 2 diabetes mellitus with diabetic chronic kidney disease; I12.9 Hypertensive chronic kidney disease with stage 1 through stage 4 chronic kidney disease, or unspecified chronic kidney disease; N18.9 Chronic kidney disease, unspecified; K21.9 Gastro-esophageal reflux disease without esophagitis; M54.9 Dorsalgia, unspecified; F41.9 Anxiety disorder, unspecified; Z88.1 Allergy status to other antibiotic agents; Z79.4 Long term (current) use of insulin; Z79.82 Long term (current) use of aspirin
CPT/HCPCS: 26055 ×3; J0690; J2001; J2405; J2704; J3010